=== PATIENT | male | born 1970 | race Caucasian/White ===

== ENCOUNTER 2022-03-10 23:56 | Emergency (ER) | payer OTHER, SELFPAY ==
[2022-03-11 00:05] VITALS: BP 149/84; PULSE 89; RESP 16; TEMP 37; O2SAT 97; BMI 29.8
--- NOTE | 2022-03-11 00:10 | CT_ITS ---
PROCEDURE INFORMATION: Exam: CT Abdomen And Pelvis Without Contrast Exam date and time: 03/11/2022 12:26 AM Age: 51 years old Clinical indication: Abdominal pain; Flank; Left; Additional info: Left flank pain TECHNIQUE: Imaging protocol: Computed tomography of the abdomen and pelvis without contrast. Radiation optimization: All CT scans at this facility use at least one of these dose optimization techniques: automated exposure control; mA and/or kV adjustment per patient size (includes targeted exams where dose is matched to clinical indication); or iterative reconstruction. COMPARISON: No relevant prior studies available. FINDINGS: Liver: Normal. No mass. Gallbladder and bile ducts: Normal. No calcified stones. No ductal dilation. Pancreas: Normal. No ductal dilation. Spleen: Normal. No splenomegaly. Adrenal glands: Normal. No mass. Kidneys and ureters: Moderate left hydronephrosis and ureteral dilatation secondary to a 3 mm stone in the urinary bladder in the region of the left UVJ. Punctate nonobstructing bilateral renal stones. Stomach and bowel: Unremarkable. No obstruction. No mucosal thickening. Appendix: No evidence of appendicitis. Intraperitoneal space: Unremarkable. No free air. No significant fluid collection. Vasculature: Unremarkable. No abdominal aortic aneurysm. Lymph nodes: Unremarkable. No enlarged lymph nodes. Urinary bladder: Unremarkable as visualized. Reproductive: Unremarkable as visualized. Bones/joints: Unremarkable. No acute fracture. Soft tissues: Unremarkable. IMPRESSION: Moderate left hydronephrosis and ureteral dilatation secondary to a 3 mm stone in the urinary bladder in the region of the left UVJ.
[2022-03-11 00:16] LABS: Microscopic, Urine URINE MICROSCOPIC (MICROSCOPIC)
[2022-03-11 00:18] LABS: Appearance,Urine CLOUDY (Clear); Bilirubin,Urine Negative (Negative); Blood, Urine 3+ (Negative); Color,Urine BROWN (Yellow); Glucose,Urine (UA) Negative (Negative); Ketones,Urine Negative (Negative); Leukocyte Esterase,Urine Negative (Negative); Nitrate,Urine Negative (Negative); Protein,Urine 1+ (Negative); Specific Gravity, Urine >= 1.030 (1.005-1.030); Urobilinogen,Urine 0.2 EU/dl (0.2)
[2022-03-11 00:23] LABS: Bacteria,Urine Trace /lpf; RBC,Urine 20-50 #/hpf (0-3); Squamous Epithelial Cell,Urine Occasional #/hpf (0-5); WBC,Urine Occasional #/hpf (0-3)
--- NOTE | 2022-03-11 00:38 | HMH.EDABDPAI ---
Discharge Plan Disposition Patient Disposition: Home, Self-Care Chief Complaint: Abdominal Pain Prescriptions Prescriptions: No Action No Known Home Medications Clinical Impressions Clinical Impression: Renal colic on left side Instructions Patient Instructions: DI for Kidney Stones Discharge ED Provider: Antwan Lazaro Abdominal Pain HPI General Chief Complaint: Abdominal Pain Stated Complaint: Abdominal Pain,bloody urine,HS of kidney stones Time Seen by Provider: 03/11/22 00:38 Mode of Arrival: Ambulatory Source of Information: Patient, Spouse and Medical Record Limitations: No Limitations Description of Symptoms (Recalled from ER Triage Doc. by RN): LEFT FLANK PAIN, SIMILAR TO PREVIOUS KIDNEY STONE. PT REPORTS BLOOD IN URINE. PAIN STARTED 03/10/22 AT 1600 History of Present Illness HPI narrative: lt flank pain with nausea - hx of kidney stone MD complaint: flank pain Onset (ago): hour(s) Quality: sharp Radiation: L flank Related Data Home Medications Medication Instructions Recorded Confirmed No Known Home Medications 03/11/22 03/11/22 Allergies Allergy/AdvReac Type Severity Reaction Status Date / Time No Known Allergies Allergy Verified 03/11/22 00:08 PFSH PFSH Social History Smoking Status: Never smoker alcohol intake: never current occupational status: employed ROS Obtained: Yes All systems reviewed & no additional complaints except as documented Physical Exam General General appearance: alert Head Head exam: normocephalic Eye Eye exam: Present PERRL and EOMI ENT ENT exam: Present mucous membranes moist Neck Neck exam: Present full ROM Respiratory Respiratory exam: Absent respiratory distress Cardiovascular Cardiovascular exam: Present regular rate Abdominal Exam Abdominal exam: Present soft Extremities Exam Extremities exam: Absent tenderness Neurological Exam Neurological exam: Present alert, oriented X3 and CN II-XII intact Skin Skin exam: Present intact Medical Decision Making Medical Records Medical records reviewed: Yes I reviewed the patient's medical records. Yaron Inquiry Pt receiving controlled substance: No Vital Signs: 03/11/22 00:05 03/11/22 01:14 03/11/22 01:32 Temperature 98.6 F Temperature Source Oral Pulse Rate 90 Pulse Rate [Left Radial] 89 Respiratory Rate 16 16 Blood Pressure 115/60 Blood Pressure [Left Arm] 149/84 H Blood Pressure Mean 78 Blood Pressure Mean [Left Arm] 105 Blood Pressure Source [Left Arm] Automatic Cuff 02 Sat by Pulse Oximetry 97 98 Oxygen Delivery Method Room Air Room Air 03/11/22 01:32 Temperature 98.5 F Temperature Source Pulse Rate 78 Pulse Rate [Left Radial] Respiratory Rate 17 Blood Pressure 121/61 Blood Pressure [Left Arm] Blood Pressure Mean Blood Pressure Mean [Left Arm] Blood Pressure Source [Left Arm] 02 Sat by Pulse Oximetry Oxygen Delivery Method Room Air Lab Data Lab results reviewed: Yes I reviewed the patient's lab results. Lab Results 03/11/22 00:00: Urine Color Brown, Urine Appearance Cloudy, Urine pH 6.0, Ur Specific [place] >= 1.030, Urine Protein 1+, Urine Glucose (UA) Negative, Urine Ketones Negative, Urine Blood 3+, Urine Nitrate Negative, Urine Bilirubin Negative, Urine Urobilinogen 0.2, Ur Leukocyte Esterase Negative, Urine RBC 20-50, Urine WBC Occasional, Ur Squamous Epith Cells Occasional, Urine Bacteria Trace 03/11/22 01:13: WBC 17.7 H, RBC 4.66, Hgb 14.5, Hct 44.6, MCV 95.7 H, MCH 31.1, MCHC 32.5, RDW 13.9, Plt Count 300, MPV 8.0, Neut % (Auto) 90.9 H, Lymph % (Auto) 5.5 L, [place] % (Auto) 2.8, Eos % (Auto) 0.6, Baso % (Auto) 0.2, Neut # (Auto) 16.1 H, Lymph # (Auto) 1.0, [place] # (Auto) 0.5, Eos # (Auto) 0.1, Baso # (Auto) 0.0, Total Counted 100, Neutrophils % (Manual) 86 H, Band Neutrophils % 6.0, Lymphocytes % (Manual) 6 L, Monocytes % (Manual) 2, Platelet Estimate Normal, RBC Morphology Normal 03/11/22 01:13: Sodium 140, Po
--- NOTE | 2022-03-11 00:48 | PC.NURSE ---
PT/FAMILY AWARE OF NPO
[2022-03-11 01:14] VITALS: BP 115/60; PULSE 90; RESP 16; O2SAT 98
[2022-03-11 01:20] LABS: Basophils % 0.2 % (0.1-2.0); Eosinophils # 0.1 K/mm3 (0.0-0.4); Eosinophils % 0.6 % (0.1-12.0); Hematocrit 44.6 % (42.0-52.0); Hemoglobin 14.5 g/dL (14.1-18.0); Lymphocytes % 5.5 % (10-50); Mean Corpuscular HGB Conc 32.5 g/dL (31.8-35.4); Mean Corpuscular Hemoglobin 31.1 pg (27.0-31.2); Mean Corpuscular Volume 95.7 fl (80-94); Monocytes # 0.5 K/mm3 (0.1-1.0); Monocytes % 2.8 % (1.7-9.3); Neutrophils # 16.1 K/mm3 (1.8-7.8); Neutrophils % 90.9 % (37.0-80.0); Platelet Count 300 K/mm3 (142-424); Red Blood Count 4.66 M/mm3 (4.60-6.20); Red Cell Distribution Width 13.9 % (11.5-17.5); White Blood Count 17.7 K/mm3 (4.8-10.8)
[2022-03-11 01:28] LABS: MANUAL DIFFERENTIAL MANUAL DIFFERENTIAL (MANUAL DIFF)
[2022-03-11 01:30] VITALS: BP 121/61; PULSE 96; RESP 16; TEMP 36.7; O2SAT 98
[2022-03-11 01:31] LABS: Alanine Aminotransferase 33 U/L (12-78); Albumin Level 4.3 g/dl (3.5-5.0); Albumin/Globulin Ratio 1.4 (1.1-1.8); Alkaline Phosphatase 65 U/L (38-126); Anion Gap 11.9 mEq/L (5-15); Aspartate Amino Transferase 31 U/L (17-59); Bilirubin,Total 0.1 mg/dl (0.2-1.3); Blood Urea Nitrogen 12 mg/dl (9-20); Calcium 9.1 mg/dl (8.4-10.2); Carbon Dioxide 25 mmol/L (22.0-30.0); Chloride 107 mmol/L (98-107); Creatinine Clearance Estimated 121 mL/min (50-200); Estimated Glomerular Filt Rate 78 ml/min (>60); GFR (African American) 95 ML/MIN (>60); Glucose 143 mg/dl (74-100); Lymphocytes % 6 % (10-50); Monocytes % 2 % (2-9); Neutrophils % 86 % (42-76); Platelet Estimate Normal; Potassium 3.9 mmoL/L (3.5-5.1); RBC Morphology Normal; Sodium 140 mmol/L (136-145); Total Cells Counted 100; Total Protein,Serum 7.3 g/dl (6.3-8.2)
[2022-03-11 01:32] VITALS: BP 121/61; PULSE 78; RESP 17; TEMP 36.9; O2SAT 97
[2022-03-11 01:36] LABS: C-Reactive Protein 2.2 mg/L (0-4)
[2022-03-11 01:44] LABS: Erythrocyte Sedimentation Rate 5 mm/hr (0-20)
--- NOTE | 2022-03-11 02:04 | PC.NURSE ---
PT WAITING FOR IVF TO COMPLETE. NO ACUTE DISTRESS NOTED.
== END 2022-03-11 02:37 | disposition home or self-care (01) ==
PROVIDERS: Emergency Provider Emergency Medicine
DX: N23 Unspecified renal colic (principal); R31.9 Hematuria, unspecified; R11.0 Nausea; Z87.442 Personal history of urinary calculi
CPT/HCPCS: 74176; 80053; 81001; 85007; 85025; 85651; 86140; 96361; 96374; 96375; 99285; J2405

== ENCOUNTER 2024-06-07 01:54 | Observation (INO) | payer OTHER, SELFPAY ==
--- NOTE | 2024-06-07 01:58 | HMH.EDGENADL ---
Discharge Plan Disposition Patient Disposition: Admitted Clinical Impressions Clinical Impression: Pulmonary embolism and infarction Discharge ED Provider: Deni Cabrera General Adult HPI General Chief complaint: Abdominal Pain Stated complaint: lower back pain and side pain Time Seen by Provider: 06/07/24 01:58 History of Present Illness HPI narrative: 53-year-old male with history of kidney stones and hypertension presents for flank pain. It was present on the right. Reports a little bit higher than normal for his kidney stones but he had colicky pain and associated nausea at that time. Denies any urinary symptoms. Denies any recent fever or illness. Reports that the pain started all of a sudden. Related Data Home Medications ?Medication ?Instructions ?Recorded ?Confirmed No Known Home Medications 03/11/22 03/11/22 Allergies Allergy/AdvReac Type Severity Reaction Status Date / Time No Known Allergies Allergy Verified 03/11/22 00:08 [facility] Disclaimer: The information contained in this section may have been updated after the patient was seen, as this information can be updated by other users. Social History (Updated 03/11/22 @ 01:45 by Antwan Lazaro MD) Smoking Status: Never smoker alcohol intake: never current occupational status: employed ROS Obtained: Yes All systems reviewed & no additional complaints except as documented Physical Exam General General appearance: alert and in no apparent distress Head Head exam: atraumatic and normocephalic Eye Eye exam: Present normal appearance, PERRL and EOMI ENT ENT exam: Present normal oropharynx and normal external ear exam Neck Neck exam: Present normal inspection and full ROM Chest Chest inspection: Present normal inspection and symmetric chest wall rise; Absent tenderness Respiratory Respiratory exam: Present normal lung sounds bilaterally; Absent respiratory distress Cardiovascular Cardiovascular exam: Present regular rate and normal rhythm Abdominal Exam Abdominal exam: Present soft and tenderness (Right CVA); Absent distention or guarding Extremities Exam Extremities exam: Present normal inspection; Absent edema or joint swelling Back Exam Back exam: Present normal inspection; Absent tenderness Neurological Exam Neurological exam: Present alert and oriented X3; Absent motor sensory deficit Psychiatric Psychiatric exam: Present normal affect and normal mood Skin Skin exam: Present warm, dry and normal color Lymphatic Lymphatic Findings: no adenopathy Medical Decision Making Medical Records Medical records reviewed: Yes I reviewed the patient's medical records. Screening: Per USPSTF and CDC recommendations, given the prevalence of disease in our region, it is our hospital?s policy to screen for HIV and viral Hepatitis for all patients aged 18 and over and those with ongoing risk factors. Yaron Inquiry Pt receiving controlled substance: No Yaron was queried for this patient: No Vital Signs: 06/07/24 02:03 06/07/24 05:58 Temperature 97.4 F L 98.4 F Temperature Source Temporal Artery Scan Oral Pulse Rate 79 Pulse Rate [Right] 94 H Respiratory Rate 20 16 Blood Pressure 133/81 Blood Pressure [Right Arm] 144/89 H Blood Pressure Mean [Right Arm] 107 02 Sat by Pulse Oximetry 99 Oxygen Delivery Method Room Air Room Air Lab Data Lab results reviewed: Yes I reviewed the patient's lab results. Lab Results 06/07/24 03:30: WBC 15.7 H, RBC 4.84, Hgb 14.9, Hct 44.9, MCV 92.7, MCH 30.7, MCHC 33.1, RDW 13.6, Plt Count 305, MPV 7.8, Neut % (Auto) 77.6, Lymph % (Auto) 15.1, [place] % (Auto) 5.8, Eos % (Auto) 1.0, Baso % (Auto) 0.5, Neut # (Auto) 12.2 H, Lymph # (Auto) 2.4, [place] # (Auto) 0.9, Eos # (Auto) 0.2, Baso # (Auto) 0.1, Total Counted 100, Neutrophils % (Manual) 71, Lymphocytes % (Manual) 20, Atypical Lymphs % 2.0, Monocytes % (Manual) 5, Eosinophils % (Manual) 2, Platelet Estimate Normal, RBC Morphology Normal, Sodium 142, Potassium 4.1, Chloride 104, Carbon Dioxide 28, Anion Gap 14.1, BUN 18, Creatinine 1.10, Estimated Creat Clear 110, Estimated GFR 69, Est GFR ( Amer) 84, Glucose 108 H, Calcium 9.3, Total Bilirubin 0.7, AST 43, ALT 46, Alkaline Phosphatase 93, Troponin I < 0.01, Total Protein 7.8, Albumin 4.4, Globulin 3.4 H, Albumin/Globulin Ratio 1.3, Lipase 309 H, Urine Color Yellow, Urine Appearance Clear, Urine pH 5.5, Ur Specific [place] >= 1.030, Urine Protein Negative, Urine Glucose (UA) Negative, Urine Ketones Negative, Urine Blood Negative, Urine Nitrate Negative, Urine Bilirubin Negative, Urine Urobilinogen 0.2, Ur Leukocyte Esterase Negative, Urine RBC Occasional, Urine WBC Occasional, Ur Squamous Epith Cells None, Urine Bacteria Trace, Hyaline Casts 3-5 06/07/24 03:30 06/07/24 03:30 Orders (Tests/Meds): ED MEDICATIONS Generic Name Dose Route Start Last Admin Trade Name Freq PRN Reason Stop Dose Admin Enoxaparin Sodium 100 mg 06/07/24 04:45 06/07/24 04:45 Enoxaparin 100mg/Ml Syringe 1 mg/kg (100 mg) 07/07/24 04:44 100 mg SUBCUT Administration Q12H NED Sodium Chloride 10 ml 06/07/24 04:16 06/07/24 04:17 Sodium Chloride 0.9% 10ml Syr (Rad Only) IV 07/07/24 04:15 10 ml NEEDED PRN Administration Maintain IV Site Discontinued Medications Generic Name Dose Route Start Last Admin Trade Name Freq PRN Reason Stop Dose Admin Iopamidol 70 ml 06/07/24 04:16 06/07/24 04:17 Iopamidol-370 (76%);100ml Bottle IV 06/07/24 04:17 70 ml ONCE ONE Administration Sodium Chloride 50 ml 06/07/24 04:16 06/07/24 04:17 0.9 % Sodium Chloride 50 Ml Vial IV 06/07/24 04:17 50 ml ONCE ONE Administration ORDERS Category Date Time Status CT abdomen pelvis w con Stat Cat Scan 06/07/24 03:[address] abdomen pelvis wo con Stat Cat Scan 06/07/24 02:[address] angio chest PE protocol Stat Cat Scan 06/07/24 03:41 Completed CBC w/Auto Diff [Complete Blood Count Auto Diff] Stat Lab 06/07/24 03:30 Completed CMP [Comprehensive Metabolic Panel] Stat Lab 06/07/24 03:30 Completed Lipase Stat Lab 06/07/24 03:30 Completed Troponin I Q3H Lab 06/07/24 07:45 Ordered Troponin I Q3H Lab 06/07/24 10:45 Ordered Troponin I Stat Lab 06/07/24 03:30 Completed UA [Urinalysis and Microscopic] Stat Lab 06/07/24 03:30 Completed EKG Request [ECG Request] Stat Y 06/07/24 04:36 Ordered ECG Data Tracing #1: I reviewed this ECG and interpreted as documented below: Sinus rhythm, rate of 81, no concerning ST-T or T wave changes, no evidence of arrhythmia. ECG initial impression date: 06/07/24 ECG initial impression time: 04:44 HEART Score History (anamnesis): Slightly suspicious ECG: Normal Age: 45-65 years Risk factors: 1-2 risk factors Troponin: </= normal limit HEART Score: 2 Medical Decision Narrative: 53-year-old male with history of kidney stones and hypertension presents with acute onset right CVA pain. He reports it feels a little higher than normal for his kidney stones. Denies any urinary symptoms.. History was obtained via interactive discussion with patient, family. On arrival, patient is [afebrile, hemodynamically stable, satting appropriately, alert, oriented x4, GCS 15], moving all extremities spontaneously. Full physical exam performed and significant for right CVA tenderness. Differential includes but is not limited to kidney stone, pyelonephritis, PE, intra-abdominal pathology. Given history of stones and symptoms consistent with obstructing stone, we initially began evaluation with urinalysis and Noncon CT abdomen pelvis. These returned normal however. Given this, we broadened our evaluation and obtained basic labs, CT PE, CT abdomen pelvis with contrast. Laboratory workup independently interpreted by me and significant for leukocytosis with white count of 15.7, no significant electrolyte derangement, negative distal troponin, urinalysis without evidence of infection. Imaging independently interpreted by me and significant for large segmental PE with involvement of the right upper right lower and right middle lobe. There are smaller subsegmental PEs on the left side. There is suggestion of heart strain as well. There are some groundglass opacities in the right lower lobe which may be developing infarct. See radiology read for full review of final results. EKG independently interpreted by me and significant for normal sinus rhythm. Given patient history, exam and workup, patient's presentation most likely represents acute provoked PE. Patient was initiated on 1 mg/kg Lovenox. On further discussion, patient reports that he recently drove from [place] for approximately 10 hours, this is likely the provoking factor. Patient has negative troponin, normal EKG, normal vital signs and is feeling well. However, given the size of the PE and the suggestion of heart strain on the CT scan I think he would be best served by obtaining formal echocardiogram and being evaluated by cardiology. Interactive discussion was had with the hospitalist on-call for admission. Procedures Risk/Benefits of Procedure(s) Were Explained: Yes Critical Care Critical Care Time Critical Care Time: Yes Attestation: On 06/07/24, the high probability of a clinically significant, sudden or life threatening deterioration of the following system(s) cardiac, respiratory required my full and direct attention, intervention and personal management. The time I documented below is in addition to time spent performing reported procedures but includes the following listed in this critical care notation. Total Time Total Critical Care Time: 45
[2024-06-07 02:03] VITALS: BP 144/89; PULSE 94; RESP 20; TEMP 36.3; O2SAT 99; BMI 30.5
--- NOTE | 2024-06-07 02:51 | CT_ITS ---
PROCEDURE INFORMATION: Exam: CT Abdomen And Pelvis Without Contrast Exam date and time: 06/07/2024 2:55 AM Age: 53 years old Clinical indication: Abdominal pain; Flank; Right; Additional info: Right flank pain, HX stones TECHNIQUE: Imaging protocol: Computed tomography of the abdomen and pelvis without contrast. Radiation optimization: All CT scans at this facility use at least one of these dose optimization techniques: automated exposure control; mA and/or kV adjustment per patient size (includes targeted exams where dose is matched to clinical indication); or iterative reconstruction. COMPARISON: CT ABDOMEN PELVIS WO CON 03/11/2022 12:26 AM FINDINGS: Lungs: Patchy airspace opacity within the right lower lobe.. Pleural spaces: No pleural effusion. Heart: Visualized heart is unremarkable. No pericardial effusion. Liver: The liver has normal size and contour. Gallbladder and biliary ducts: The gallbladder is unremarkable. No biliary ductal dilatation. Pancreas: The pancreas is unremarkable. Spleen: The spleen is unremarkable. Adrenal glands: The adrenal glands are normal. Kidneys and ureters: The kidneys have non-contrast appearance without hydronephrosis. Multiple nonobstructing renal stones bilaterally, largest measuring 4 mm. The ureters have normal course and caliber without stone. Stomach and bowel: The small and large bowel have normal course and caliber. No evidence of bowel obstruction. No pericolonic inflammatory stranding. Appendix: No evidence of appendicitis. Intraperitoneal space: No significant peritoneal free fluid. No free peritoneal air. Vasculature: No abdominal aortic aneurysm. Lymph nodes: No suspicious adenopathy by size criteria. Urinary bladder: The bladder is normal without focal wall thickening. Reproductive: The prostate is mildly enlarged with calcifications. Bones/joints: Multilevel degenerative type changes of the spine. No acute osseous abnormality. Soft tissues: Unremarkable. IMPRESSION: 1. No obstructive uropathy. 2. Bilateral nonobstructing renal stones. 3. Patchy airspace opacity within the right lung base favored represent atelectasis with infection not excluded. 4. Other findings as above.
--- NOTE | 2024-06-07 03:41 | CT_ITS ---
PROCEDURE INFORMATION: Exam: CTA Chest With Contrast Exam date and time: 06/07/2024 4:04 AM Age: 53 years old Clinical indication: Other: Right pleuritic thoracic/flank pain TECHNIQUE: Imaging protocol: Computed tomographic angiography of the chest with contrast. Exam focused on the arteries. 3D rendering (Not supervised by radiologist): MIP and/or 3D reconstructed images were created by the technologist. Radiation optimization: All CT scans at this facility use at least one of these dose optimization techniques: automated exposure control; mA and/or kV adjustment per patient size (includes targeted exams where dose is matched to clinical indication); or iterative reconstruction. Contrast material: ISOUVE 370; Contrast volume: 70 ml; Contrast route: INTRAVENOUS (IV); COMPARISON: CT ANGIO CHEST PE PROTOCOL 06/07/2024 4:04 AM FINDINGS: Pulmonary arteries: Multiple pulmonary artery embolisms within segmental and subsegmental branches of the right middle, right lower and the left lower lobes. Aorta: No aortic aneurysm. No aortic dissection. Thyroid: The thyroid gland is normal. Lungs: Ground-glass opacity within the right lower lobe. Pleural spaces: No pneumothorax. No pleural effusion. Heart: No cardiomegaly. No pericardial effusion. There is flattening of the intraventricular septum. Heart RV/LV ratio: RV LV ratio is 1.20 Lymph nodes: No suspicious adenopathy by size criteria. Bones/joints: Multilevel degenerative type changes of the spine. No acute osseous abnormality. Soft tissues: Unremarkable. IMPRESSION: 1. Pulmonary artery embolisms within segmental and subsegmental branches of the right middle, right lower, and left lower lobes with associated evidence suggestive of right heart strain. Recommend correlation with history/physical exam. 2. Ground-glass opacity within the right lower lobe may represent developing infarct, diagnostic considerations include atelectasis. 3. Other findings as above.
--- NOTE | 2024-06-07 03:41 | CT_ITS ---
PROCEDURE INFORMATION: Exam: CT Abdomen And Pelvis With Contrast Exam date and time: 06/07/2024 4:04 AM Age: 53 years old Clinical indication: Abdominal pain; Flank; Right; Additional info: Right flank pain TECHNIQUE: Imaging protocol: Computed tomography of the abdomen and pelvis with contrast. 3D rendering (Not supervised by radiologist): MIP and/or 3D reconstructed images were created by the technologist. Radiation optimization: All CT scans at this facility use at least one of these dose optimization techniques: automated exposure control; mA and/or kV adjustment per patient size (includes targeted exams where dose is matched to clinical indication); or iterative reconstruction. Contrast material: ISOVUE; Contrast volume: 70 ml; Contrast route: IV; COMPARISON: CT ABDOMEN PELVIS WO CON 06/07/2024 2:55 AM FINDINGS: Lungs: Right lower lobe airspace opacity. Lower lobe airspace opacity Diaphragm: See same day CT chest for supradiaphragmatic findings. Liver: The liver has normal size and contour. Gallbladder and biliary ducts: The gallbladder is unremarkable. No biliary ductal dilatation. Pancreas: The pancreas is unremarkable. Spleen: Heterogeneous appearance of the spleen. No splenomegaly. Adrenal glands: The adrenal glands are normal. Kidneys and ureters: The kidneys enhance symmetrically without hydronephrosis. Multiple nonobstructing renal stones bilaterally, largest measuring 4 mm. Simple appearing renal cysts bilaterally. Stomach and bowel: The stomach is normal. The small and large bowel have normal course and caliber. No evidence of bowel obstruction. No pericolonic inflammatory stranding. Appendix: No evidence of appendicitis. Intraperitoneal space: No free air. No significant fluid collection. Vasculature: There is a pulmonary embolism within the segmental branches of the right and left lower lobes. Mild narrowing of the SMA. Lymph nodes: No enlarged lymph nodes. Urinary bladder: The bladder is normal without focal wall thickening. Reproductive: The prostate is enlarged with calcifications. Bones/joints: Multilevel degenerative type changes of the spine. No acute osseous abnormality. Soft tissues: Unremarkable. IMPRESSION: 1. Pulmonary artery embolisms within the right and left lower lobes. See same day CTA chest for further detail. 2. No obstructive uropathy. 3. Bilateral nonobstructing renal stones. 4. Other findings as above. COMMENTS: Consistent with the [employer]'s Incidental Findings Committee white paper (J Am Tyler Radiol 2018): Any incidental renal lesion less than 1 cm or classified as too small to characterize, or any incidental cystic renal lesion characterized as simple-appearing, is likely benign. No follow-up imaging is recommended for these lesions per consensus recommendations based on imaging criteria.
[2024-06-07 03:50] LABS: Appearance,Urine CLEAR (Clear); Bilirubin,Urine Negative (Negative); Blood, Urine Negative (Negative); Color,Urine YELLOW (Yellow); Glucose,Urine (UA) Negative (Negative); Ketones,Urine Negative (Negative); Leukocyte Esterase,Urine Negative (Negative); Microscopic, Urine URINE MICROSCOPIC (MICROSCOPIC); Nitrate,Urine Negative (Negative); PH,Urine 5.5 (5.0-8.5); Protein,Urine Negative (Negative); Specific Gravity, Urine >= 1.030 (1.005-1.030); Urobilinogen,Urine 0.2 EU/dl (0.2)
[2024-06-07 03:53] LABS: Basophils # 0.1 K/mm3 (0-0.2); Basophils % 0.5 % (0.1-2.0); Eosinophils # 0.2 K/mm3 (0.0-0.4); Hematocrit 44.9 % (42.0-52.0); Hemoglobin 14.9 g/dL (14.1-18.0); Lymphocytes # 2.4 K/mm3 (0.7-4.5); Lymphocytes % 15.1 % (10-50); Mean Corpuscular HGB Conc 33.1 g/dL (31.8-35.4); Mean Corpuscular Hemoglobin 30.7 pg (27.0-31.2); Mean Corpuscular Volume 92.7 fl (80-94); Mean Platelet Volume 7.8 fl (7.4-10.4); Monocytes # 0.9 K/mm3 (0.1-1.0); Monocytes % 5.8 % (1.7-9.3); Neutrophils # 12.2 K/mm3 (1.8-7.8); Neutrophils % 77.6 % (37.0-80.0); Platelet Count 305 K/mm3 (142-424); Red Blood Count 4.84 M/mm3 (4.60-6.20); Red Cell Distribution Width 13.6 % (11.5-17.5); White Blood Count 15.7 K/mm3 (4.8-10.8)
[2024-06-07 03:56] LABS: MANUAL DIFFERENTIAL MANUAL DIFFERENTIAL (MANUAL DIFF)
[2024-06-07 03:57] LABS: Bacteria,Urine Trace /lpf; RBC,Urine Occasional #/hpf (0-3); WBC,Urine Occasional #/hpf (0-3)
[2024-06-07 03:58] LABS: Lipase 309 U/L (23-300)
[2024-06-07 03:59] LABS: Alanine Aminotransferase 46 U/L (12-78); Albumin Level 4.4 g/dl (3.5-5.0); Albumin/Globulin Ratio 1.3 (1.1-1.8); Alkaline Phosphatase 93 U/L (38-126); Anion Gap 14.1 mEq/L (5-15); Aspartate Amino Transferase 43 U/L (17-59); Bilirubin,Total 0.7 mg/dl (0.2-1.3); Blood Urea Nitrogen 18 mg/dl (9-20); Calcium 9.3 mg/dl (8.4-10.2); Carbon Dioxide 28 mmol/L (22.0-30.0); Chloride 104 mmol/L (98-107); Creatinine Clearance Estimated 110 mL/min (50-200); Estimated Glomerular Filt Rate 69 ml/min (>60); GFR (African American) 84 ML/MIN (>60); Globulin 3.4 g/dL (1.3-3.2); Glucose 108 mg/dl (74-100); Potassium 4.1 mmoL/L (3.5-5.1); Sodium 142 mmol/L (136-145); Total Protein,Serum 7.8 g/dl (6.3-8.2)
[2024-06-07 04:14] LABS: Eosinophils % 2 % (0-3); Lymphocytes % 20 % (10-50); Monocytes % 5 % (2-9); Neutrophils % 71 % (42-76); Platelet Estimate Normal; RBC Morphology Normal; Total Cells Counted 100
[2024-06-07] MEDS: IOPAMIDOL-370 (76%);100ML BOTTLE 70 ML IV (04:17)
[2024-06-07] MEDS: SODIUM CHLORIDE 0.9% 10ML SYR (RAD ONLY) 10 ML IV (04:17)
[2024-06-07] MEDS: 0.9 % SODIUM CHLORIDE 50 ML VIAL IV (04:17)
--- NOTE | 2024-06-07 04:44 | ECG_ITS ---
APPROVED REPORT Exam: Resting ECG HR:81 bpm ECG Measurements Heart Rate 81 AXES PA 152 P 62 QRSd 97 QRS 63 QT 369 T 18 QTc 406 Conclusion SINUS RHYTHM NORMAL ECG INTERPRETATION BASED ON A DEFAULT AGE OF 40 YEARS UNCONFIRMED REPORT Electronically signed by : PRAMOD SHABAZZ, 06/10/2024 06:27:34
[2024-06-07] MEDS: ENOXAPARIN 100MG/ML SYRINGE 100 MG SUBCUT (04:45)
--- NOTE | 2024-06-07 04:48 | PC.NURSE ---
EKG 12-lead taken at this time.
[2024-06-07 04:53] LABS: Troponin I < 0.01 ng/ml (0.00-0.034)
[2024-06-07 05:58] VITALS: BP 133/81; PULSE 79; RESP 16; TEMP 36.9; O2SAT 95
--- NOTE | 2024-06-07 06:08 | P.HP_ITS ---
History of Present Illness *Admission Date: 06/07/24 *Reason for visit:: Right chest pain *History of present illness: Cm Ramos is a 53-year-old male past medical history significant for HCM? who presents emergency room tonight with complaints of right sided thoracic pain . Mr. Ramos just drove 10 hours from [place]. Reports he had sharp pain that started on his right side, posterior ribs radiating around to the anterior chest. Pain is worse with inspiration. Reports a very mild shortness of breath. Mr. Ramos denies any blood clotting disorders in the past, no family history of clotting disorders. He has never had a pulmonary embolus before. Does not take blood thinners. Only takes a beta-mee daily for reported HCM. Reports that he last had a stress test and an echo done approximately 2 months ago. No abnormalities noted on the stress test. Patient is active, does go to the gym regularly. Does report some left-sided calf pain, reports he thinks it is just a muscle cramp. Denies any swelling in his lower extremities, no erythema noted. Denies tobacco use, alcohol use, illicit drug use. Lab work in the ER showed an elevated white count of 15,000, lipase slightly elevated at 309. UA was negative. CTA of the chest showed multiple pulmonary embolisms within the segmental and subsegmental branches of the right middle, right lower, and left lower lobes, does appear to be some right heart strain noted on the scan. Groundglass opacity in the right lower lobe developing infarct versus atelectasis. Patient was given a 1 mg/kg dose of Lovenox. He will be admitted to the hospitalist service for pulmonary embolus. [facility] Disclaimer: The information contained in this section may have been updated after the patient was seen, as this information can be updated by other users. Medical History HOCM (hypertrophic obstructive cardiomyopathy) Surgical History History of lithotripsy Social History Smoking Status: Never smoker alcohol intake: never current occupational status: employed Review of Systems Review of Systems Review of systems:: pertinent systems reviewed and negative unless documented below *Cardiovascular Cardiovascular: Reports dyspnea *Respiratory Respiratory: Reports dyspnea and Reports pain with cough Comments: Right sided chest pain Meds Home Medications and Allergies Home Medications ?Medication ?Instructions ?Recorded ?Confirmed ?Type apixaban 5 mg (74 tabs) tablets in 5 mg PO BID #74 tabs 06/07/24 Rx a dose pack (Eliquis DVT-PE Treat 30D Start) hydrocodone 5 mg-acetaminophen 325 1 tab PO Q8H PRN pain #9 tabs 06/07/24 Rx mg tablet metoprolol succinate 25 mg 25 mg PO DAILY 06/07/24 06/07/24 History tablet,extended release 24 hr New Prescriptions to Start Prescriptions: apixaban [Eliquis DVT-PE Treat 30D Start] Jasvir Schaefer hydrocodone-acetaminophen Jasvir Schaefer Allergies Allergy/AdvReac Type Severity Reaction Status Date / Time No Known Allergies Allergy Verified 03/11/22 00:08 Exam Data for Last 24 hours Vital signs and Labs for Last 24 Hours: Temp Pulse Resp BP Pulse Ox O2 Del Method 98.4 F 79 16 133/81 99 Room Air 06/07/24 05:58 06/07/24 05:58 06/07/24 05:58 06/07/24 05:58 06/07/24 02:03 06/07/24 05:58 Laboratory Results - last 24 hr 06/07/24 03:30: WBC 15.7 H, RBC 4.84, Hgb 14.9, Hct 44.9, MCV 92.7, MCH 30.7, MCHC 33.1, RDW 13.6, Plt Count 305, MPV 7.8, Neut % (Auto) 77.6, Lymph % (Auto) 15.1, Story % (Auto) 5.8, Eos % (Auto) 1.0, Baso % (Auto) 0.5, Neut # (Auto) 12.2 H, Lymph # (Auto) 2.4, Story # (Auto) 0.9, Eos # (Auto) 0.2, Baso # (Auto) 0.1, Total Counted 100, Neutrophils % (Manual) 71, Lymphocytes % (Manual) 20, Atypical Lymphs % 2.0, Monocytes % (Manual) 5, Eosinophils % (Manual) 2, Platelet Estimate Normal, RBC Morphology Normal, Sodium 142, Potassium 4.1, Chloride 104, Carbon Dioxide 28, Anion Gap 14.1, BUN 18, Creatinine 1.10, Estimated Creat Clear 110, Estimated GFR 69, Est GFR ( Amer) 84, Glucose 108 H, Calcium 9.3, Total Bilirubin 0.7, AST 43, ALT 46, Alkaline Phosphatase 93, Troponin I < 0.01, Total Protein 7.8, Albumin 4.4, Globulin 3.4 H, Albumin/Globulin Ratio 1.3, Lipase 309 H, Urine Color Yellow, Urine Appearance Clear, Urine pH 5.5, Ur Specific [place] >= 1.030, Urine Protein Negative, Urine Glucose (UA) Negative, Urine Ketones Negative, Urine Blood Negative, Urine Nitrate Negative, Urine Bilirubin Negative, Urine Urobilinogen 0.2, Ur Leukocyte Esterase Negative, Urine RBC Occasional, Urine WBC Occasional, Ur Squamous Epith Cells None, Urine Bacteria Trace, Hyaline Casts 3-5 I & O for Last 24 hours: Intake & Output 06/04/24 06/05/24 06/06/24 06/07/24 23:59 23:59 23:59 23:59 Weight 102.058 kg Constitutional Constitutional: no acute distress *Routine HEENT Exam Head: Present normocephalic Eye: Present EOMI and PERRL ENT: Present mucous membranes moist *Routine Neck Exam Neck: Present supple; Absent lymphadenopathy *Routine Respiratory Exam Respiratory: Present CTA bilaterally *Routine Cardiovascular Exam Cardiovascular: Present RRR *Routine Abdominal Exam Abdominal: Present soft and normoactive bowel sounds; Absent tenderness *Routine Rectal Exam Rectal:: deferred *Routine Genitalia Exam Genitalia:: deferred *Routine Extremities Exam Extremities: Absent cyanosis, clubbing or edema *Routine Skin Exam Skin: Present warm; Absent rash *Routine Neurological Exam Neurological: Present alert and oriented X3 Assessment and Plan *Assessment and plan (1) Pulmonary embolism and infarction: Status: Acute Category: Medical Code(s): I26.99 - Other pulmonary embolism without acute cor pulmonale (2) HTN (hypertension): Status: Acute Category: Medical Code(s): I10 - Essential (primary) hypertension Plan Assessment: This is a 53-year-old male being admitted for multiple pulmonary emboli with evidence of right heart strain on CTA. On my exam, patient is lying in bed in no acute distress. No complaints at this time. Case discussed with ER physician, request admission for further management including echo and cardiology eval. Medicine agreed to admit. Plan: Admit to observation-MedSurg Pulmonary emboli Evidence of right heart strain on CTA -Likely due to recent lengthy car ride, greater than 10 hours from [place] yesterday -Telemetry -Echo -Consult cardiology -Serial troponins -Pain management as needed -Patient was given a loading dose of 1 mg/kg Lovenox, will switch him over to a DOAC -Doppler studies of his bilateral lower extremities HTN -Continue beta-mee DVT prophylaxis: Lovenox CODE STATUS: Full code Surrogate decision maker: Yany Roy co [id number] Skin: Low risk Estimated length of stay: Less than 2 midnights Rounded on patient after nurse practitioner. Personally examined and interviewed patient. Agree with exam findings and care plan as documented.
--- NOTE | 2024-06-07 06:11 | CA_ITS ---
APPROVED REPORT EXAM: Comprehensive 2D, Doppler, and color-flow Echocardiogram Adobe Block Maker: Helena Euceda RT(R) Ht: 6 ft 0 in Wt: 225lbs BSA: 2.24 BP: 133/81 mmHg Indications: bilateral PE's, HTN, patient states he possibly had HOCM on echo done 3-4 months ago in [place], hx kidney stones Echo Enhancing Agent Indication: Rule out Shunt Agent(s) / Amount(s) Used: Agitated Saline 20 cc 2D Dimensions Left Atrium 4.00 cm M: 3.0 - 4.0 LVEF (Perdomo's) 50.10 % M: 52 - 72 LVOT 1.96 cm (M/F) 1.5-2.5 LV Volume 108.10 mL M: 62 - 150 LV Volume Index 48.3 mL/m2 M: 34 - 74 LA Volume 45.40 mL LA Volume Index 20.27 mL/m2 (M/F) 16-34 EF AP4 48.60 % EF AP2 49.4 % EF BP 50.1 % GL Strain -18.5 % M-Mode Dimensions RVDd 2.61 cm (0.9-2.6) LVDd 4.70 cm (3.5-5.7) Ao Diam 2.99 cm (2.0-3.7) LVDs 3.13 cm (3.5-5.7) IVSd 0.68 cm (0.6-1.1) PWd 0.68 cm (0.6-1.1) EF (Teich) 62.10% FS 33.40% EDV (Teich) 102.40 mL ESV (Teich) 38.80 mL LV Diastology E Decel Time 172 (160-240 msec) E/A Ratio 1.1 MED E' 6.5 (>= 7 cm/sec) E'/MED E' Ratio 12.68 (<= 14) LAT E' 10.4 (>= 10 cm/sec) E/LAT E' Ratio 7.92 (<= 14) Aortic Valve LVOT Max 133.0 (70-110 cm/s) YUE Index 1.30 cm2/m2 LVOT VTI 24.23 cm AoV Peak Ronni. 147.0 (50-130 cm/s) AO Mean GR. 4.20 (<5 mmHg) AO VTI 25.1 (18-25 cm) YUE (VTI) 2.91 (2.5-4.5 cm2) Mitral Valve MV E Max Ronni. 82.0 (40-130 cm/s) MV A Velocity 74.0 (40-130 cm/s) E/A Ratio 1.12 MV Decel. Time 172 (160-240 ms) Tricuspid Valve TR P. Velocity 258.00 cm/s RAP Estimate 10.00 mmHg RVSP 36.70 mmHg Left Ventricle The left ventricle is normal size. The left ventricular systolic function is normal. The left ventricular ejection fraction is within the normal range. Proximal septal thickening is noted. Mild increase in the LV apical region (foreshortening vs. increased wall thickness). There is normal LV segmental wall motion. The left ventricular diastolic function is normal. LVEF is 60%. Right Ventricle The right ventricle is mildly dilated. The right ventricular systolic function is normal. Atria The left atrium is mildly dilated. The right atrium is mildly dilated. There is no Doppler evidence of interatrial shunt. Aortic Valve Aortic valve is mildly thickened. There is no aortic valvular stenosis. Trace aortic regurgitation. Mitral Valve The mitral valve is normal in structure. No evidence of mitral valve stenosis. Trace mitral regurgitation. Tricuspid Valve The tricuspid valve leaflets are thin and pliable. Trace tricuspid regurgitation. There is insufficient TR jet to estimate RVSP. Pulmonic Valve The pulmonary valve is normal in structure. Trace pulmonic regurgitation. Great Vessels The aortic root is normal in size. The ascending aorta is not well-visualized. IVC is normal in size and collapses >50% with inspiration. Pericardium There is no pericardial effusion. Other Information Study Quality: Fair Conclusion Normal biventricular systolic function. No evidence of JAYANT or LVOT obstruction at rest. Mild increase in the LV apical region (foreshortening vs. increased wall thickness). Mild RV dilation. Mild biatrial dilation. No significant valvular stenosis or regurgitation. In the setting of suggested recent diagnosis of possible HCM and presence of mild increase of apical LV wall thickness, further evaluation for apical HCM is suggested with outpatient cardiac MRI (HCM protocol) to conclusively rule out HCM diagnosed. Electronically signed by : Mag Gabriel MD 06/07/2024 11:28:56
--- NOTE | 2024-06-07 06:11 | CA_ITS ---
FINAL REPORT CLINICAL HISTORY: PE'S,LEFT LEG PAIN COMPARISON: None FINDINGS: DUPLEX VENOUS SONOGRAPHY OF THE BILATERAL LOWER EXTREMITIES Multiple transverse and longitudinal scans were performed of the femoropopliteal deep venous systems, with augmentation and compression maneuvers. Normal phasic flow was noted in the right lower extremity visualized deep venous system. No intraluminal increased echogenicity is noted to suggest thrombus. There is normal compression and augmentation of the venous structures. No abnormal venous collaterals are seen. Echogenic material is seen in the left popliteal vein and peroneal vein consistent with thrombus. IMPRESSION: No evidence of DVT right lower extremity. DVT left popliteal and upper calf veins. Reviewed, Interpreted and Dictated by Kimber Jacinto MD Transcribed by Machelle Zepeda Authenticated and [facility]
--- NOTE | 2024-06-07 06:13 | PC.NURSE ---
pt arrived to floor via wheelchair @06:08
[2024-06-07 06:20] VITALS: PULSE 83
--- NOTE | 2024-06-07 07:28 | HMH.PHAINT1 ---
Pharmacy Intervention Comments: home medications verified via outpatient pharmacy and patient interview
[2024-06-07 08:00] VITALS: BP 136/73; PULSE 100; PULSE 94; RESP 19; TEMP 36.6; O2SAT 95
[2024-06-07 08:49] LABS: Troponin I < 0.01 ng/ml (0.00-0.034)
--- NOTE | 2024-06-07 11:31 | EXP.CARD.CON ---
History of Present Illness History of Present Illness Consult date: 06/07/24 Requesting physician: Jasvir Schaefer Chief complaint: SOA, PE History of present illness: 53-year-old white male with hx of mild HCM and Htn presented to the emergency room with complaints of shortness of breath and weakness worse with exertion better with rest associated with left calf pain. Patient was found to have multiple PEs noted on CT with mild right heart strain. 2D echo is pending. Venous duplex indicates negative for DVT on the right but positive for DVT left popliteal and upper calf veins. O2 sat 95% on room air, heart rate 94. Patient denies any recent injury, prolonged illness, family history of VTE. 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 Patient states last week he had sharp pain in his left calf which he thought he hurt at the gym. Symptoms progressed until yesterday when he developed the shortness of breath and weakness after driving here from [place]. Patient was admitted overnight and placed on Lovenox. This morning he reports some mild right pleuritic chest discomfort worse with deep breathing and left calf pain on palpation. [facility] Disclaimer: The information contained in this section may have been updated after the patient was seen, as this information can be updated by other users. Medical History HOCM (hypertrophic obstructive cardiomyopathy) Surgical History History of lithotripsy Social History Smoking Status: Never smoker alcohol intake: never current occupational status: employed Travel in the last 8 weeks: Inside the [facility] Review of Systems Constitutional Constitutional: Denies fatigue and Denies weakness Eyes Eyes: Denies loss of vision ENT Ears, Nose, Mouth, and Throat: Denies hearing loss and Denies vertigo *Cardiovascular Cardiovascular: Reports chest pain, Reports dyspnea and Denies syncope *Respiratory Respiratory: Denies cough and Reports dyspnea *Gastrointestinal Gastrointestinal: Denies change in stool character, Denies nausea and Denies vomiting *Genitourinary Genitourinary: Denies difficulty urinating *Musculoskeletal Musculoskeletal: Denies muscle weakness Comments: Left calf pain on palpation and ambulation Integumentary/Breasts Skin/Breast: Denies changing lesions *Neurologic Neurologic: Denies loss of vision, Denies syncope, Denies vertigo and Denies weakness Endocrine Endocrine: Denies fatigue Exam Data for Last 24 hours Vital signs and Labs for Last 24 Hours: Temp Pulse Resp BP Pulse Ox O2 Del Method 97.8 F 94 H 19 136/73 95 Room Air 06/07/24 08:00 06/07/24 08:00 06/07/24 08:00 06/07/24 08:00 06/07/24 08:00 06/07/24 11:00 Laboratory Results - last 24 hr 06/07/24 03:30: WBC 15.7 H, RBC 4.84, Hgb 14.9, Hct 44.9, MCV 92.7, MCH 30.7, MCHC 33.1, RDW 13.6, Plt Count 305, MPV 7.8, Neut % (Auto) 77.6, Lymph % (Auto) 15.1, [place] % (Auto) 5.8, Eos % (Auto) 1.0, Baso % (Auto) 0.5, Neut # (Auto) 12.2 H, Lymph # (Auto) 2.4, [place] # (Auto) 0.9, Eos # (Auto) 0.2, Baso # (Auto) 0.1, Total Counted 100, Neutrophils % (Manual) 71, Lymphocytes % (Manual) 20, Atypical Lymphs % 2.0, Monocytes % (Manual) 5, Eosinophils % (Manual) 2, Platelet Estimate Normal, RBC Morphology Normal, Sodium 142, Potassium 4.1, Chloride 104, Carbon Dioxide 28, Anion Gap 14.1, BUN 18, Creatinine 1.10, Estimated Creat Clear 110, Estimated GFR 69, Est GFR ( Amer) 84, Glucose 108 H, Calcium 9.3, Total Bilirubin 0.7, AST 43, ALT 46, Alkaline Phosphatase 93, Troponin I < 0.01, Total Protein 7.8, Albumin 4.4, Globulin 3.4 H, Albumin/Globulin Ratio 1.3, Lipase 309 H, Urine Color Yellow, Urine Appearance Clear, Urine pH 5.5, Ur Specific [place] >= 1.030, Urine Protein Negative, Urine Glucose (UA) Negative, Urine Ketones Negative, Urine Blood Negative, Urine Nitrate Negative, Urine Bilirubin Negative, Urine Urobilinogen 0.2, Ur Leukocyte Esterase Negative, Urine RBC Occasional, Urine WBC Occasional, Ur Squamous Epith Cells None, Urine Bacteria Trace, Hyaline Casts 3-5 06/07/24 08:08: Troponin I < 0.01 I & O for Last 24 hours: Intake & Output 06/04/24 06/05/24 06/06/24 06/07/24 23:59 23:59 23:59 23:59 Intake Total 540 / 540 Output Total 0 / 0 Balance 540 / 540 Weight 225 lb Constitutional Constitutional: no acute distress and cooperative *Routine HEENT Exam Eye: Present PERRL *Routine Respiratory Exam Respiratory: Present CTA bilaterally; Absent accessory muscle use, wheezes or crackles *Routine Cardiovascular Exam Cardiovascular: Present RRR, Normal S1 and Normal S2; Absent murmur, gallop or rubs *Routine Abdominal Exam Abdominal: Present soft; Absent tenderness *Routine Extremities Exam Extremities: Present pulses intact; Absent cyanosis or edema Comments: Left calf pain on palpation *Routine Skin Exam Skin: Present intact; Absent erythema or wounds *Routine Neurological Exam Neurological: Present alert and oriented X3 Routine Psychiatric Exam Psychiatric: Present cooperative Meds Home Medications and Allergies Home Medications ?Medication ?Instructions ?Recorded ?Confirmed ?Type metoprolol succinate 25 mg 25 mg PO DAILY 06/07/24 06/07/24 History tablet,extended release 24 hr New Prescriptions to Start Prescriptions: Allergies Allergy/AdvReac Type Severity Reaction Status Date / Time No Known Allergies Allergy Verified 03/11/22 00:08 Assessment and Plan *Assessment and plan (1) Pulmonary embolism and infarction: Status: Acute Category: Medical Code(s): I26.99 - Other pulmonary embolism without acute cor pulmonale (2) HTN (hypertension): Status: Acute Category: Medical Code(s): I10 - Essential (primary) hypertension (3) Deep vein thrombosis, lower left extremity: Status: Acute Category: Medical Code(s): I82.402 - Acute embolism and thrombosis of unspecified deep veins of left lower extremity (4) Hypertrophic cardiomyopathy: Status: Acute Category: Medical Code(s): I42.2 - Other hypertrophic cardiomyopathy Plan ECHO: Conclusion Normal biventricular systolic function. No evidence of JAYANT or LVOT obstruction at rest. Mild increase in the LV apical region (foreshortening vs. increased wall thickness). Mild RV dilation. Mild biatrial dilation. No significant valvular stenosis or regurgitation. In the setting of suggested recent diagnosis of possible HCM and presence of mild increase of apical LV wall thickness, further evaluation for apical HCM is suggested with outpatient cardiac MRI (HCM protocol) to conclusively rule out HCM diagnosed. Acute Bilat PE and LLE DVT - ECHO neg for RV strain and pt is hemodynamically stable. Recommend he ambulate with staff and if symptomatically stable can DC home with Eliquis starter pack - Will refer to heme-onc outpatient as this appears to be unprovoked VTE Hypertrophic Cardiomyopathy - cont BB - we can f/u with pt in office, will consider cardiac MRI Hypertension -Stable, continue home meds CV DC Plan: Eliquis starter pack Office f/u 1-2 weeks with us Refer to Dr. Cottrell - Heme/Onc for unprovoked VTE
[2024-06-07 12:00] VITALS: BP 166/86; PULSE 120; PULSE 96; RESP 20; O2SAT 96
[2024-06-07] MEDS: HYDROCODONE/APAP 5/325 MG TABLET 1 TAB PO (12:32)
--- NOTE | 2024-06-07 13:13 | ECG_ITS ---
APPROVED REPORT Exam: Resting ECG HR:105 bpm ECG Measurements Heart Rate 105 AXES FL 166 P 57 QRSd 97 QRS 57 QT 326 T 26 QTc 387 Conclusion SINUS TACHYCARDIA NONSPECIFIC T-WAVE ABNORMALITY ABNORMAL RHYTHM ECG UNCONFIRMED REPORT Electronically signed by : Parker Valenzuela MD 06/08/2024 20:56:45
--- NOTE | 2024-06-07 13:21 | PC.NURSE ---
pt c/o SOB and rt sided thoracic pain. Hospitalist was made aware. ordered EKG and troponin. EKG was interpreted by Perez Do. no significant EKG changes noted. troponin was collected by lab. vital signs were 162/96, HR 105, O2 95% on room air, and RR was 22. walk test performed per Georgette verbal order. pt did not drop below 90% while on room air. repeat vitals signs are 166/101, HR 116,94% on room air, and RR 20 after walk test. no new orders at this time. pt remains alert and oriented, no physical changes noted.
[2024-06-07 14:28] LABS: Troponin I < 0.01 ng/ml (0.00-0.034)
--- NOTE | 2024-06-07 15:49 | EXP.DC.SUM ---
General Admission date:: 06/07/24 Discharge date: 06/07/24 HPI HPI HPI: Cm Ramos is a 53-year-old male past medical history significant for HCM? who presents emergency room tonight with complaints of right sided thoracic pain . Mr. Ramos just drove 10 hours from [place]. Reports he had sharp pain that started on his right side, posterior ribs radiating around to the anterior chest. Pain is worse with inspiration. Reports a very mild shortness of breath. Mr. Ramos denies any blood clotting disorders in the past, no family history of clotting disorders. He has never had a pulmonary embolus before. Does not take blood thinners. Only takes a beta-mee daily for reported HCM. Reports that he last had a stress test and an echo done approximately 2 months ago. No abnormalities noted on the stress test. Patient is active, does go to the gym regularly. Does report some left-sided calf pain, reports he thinks it is just a muscle cramp. Denies any swelling in his lower extremities, no erythema noted. Denies tobacco use, alcohol use, illicit drug use. Lab work in the ER showed an elevated white count of 15,000, lipase slightly elevated at 309. UA was negative. CTA of the chest showed multiple pulmonary embolisms within the segmental and subsegmental branches of the right middle, right lower, and left lower lobes, does appear to be some right heart strain noted on the scan. Groundglass opacity in the right lower lobe developing infarct versus atelectasis. Patient was given a 1 mg/kg dose of Lovenox. He will be admitted to the hospitalist service for pulmonary embolus. Hospital Course Hospital Course Hospital Course: Assessment: This is a 53-year-old male being admitted for multiple pulmonary emboli with evidence of right heart strain on CTA. On my exam, patient is lying in bed in no acute distress. No complaints at this time. Case discussed with ER physician, request admission for further management including echo and cardiology eval. patient did well overnight. Remained on room air. Evaluated by cardiology. Ultrasound of lower extremities obtained showing left lower extremity DVT. Started on anticoagulation. Stable to discharge home with close follow-up with cardiology. Problems addressed as follows: Pulmonary emboli Evidence of right heart strain on CTA -Likely due to recent lengthy car ride, greater than 10 hours from [place] yesterday. However also reports that has been having left calf pain for over a week since working out. Thought it was a calf strain. Monitored on telemetry. Remained stable on room air. Echo obtained showing no right heart strain. Cardiology was consulted for evaluation and follow-up plans. Patient treated initially with Lovenox. Was transition to Eliquis, 1 month starter pack sent. Serial troponins remain negative. Lower extremity Doppler obtained showing left lower extremity DVT. Given patient's stability, discharge home, will follow-up with cardiology in the coming weeks after he travels back home to [place]. -Was evaluated for oxygen need prior to discharge with ambulation. No desats with ambulation. HTN: Continue metoprolol succinate 25 mg daily. Total time spent on discharge 32 minutes in counseling, documentation, chart review, and direct care with patient. Exam Data for Last 24 hours Vital signs and Labs for Last 24 Hours: Temp Pulse Resp BP Pulse Ox O2 Del Method 98.4 F 83 16 133/81 99 Room Air 06/07/24 05:58 06/07/24 06:20 06/07/24 05:58 06/07/24 05:58 06/07/24 02:03 06/07/24 06:45 Laboratory Results - last 24 hr 06/07/24 03:30: WBC 15.7 H, RBC 4.84, Hgb 14.9, Hct 44.9, MCV 92.7, MCH 30.7, MCHC 33.1, RDW 13.6, Plt Count 305, MPV 7.8, Neut % (Auto) 77.6, Lymph % (Auto) 15.1, Reynolds % (Auto) 5.8, Eos % (Auto) 1.0, Baso % (Auto) 0.5, Neut # (Auto) 12.2 H, Lymph # (Auto) 2.4, Reynolds # (Auto) 0.9, Eos # (Auto) 0.2, Baso # (Auto) 0.1, Total Counted 100, Neutrophils % (Manual) 71, Lymphocytes % (Manual) 20, Atypical Lymphs % 2.0, Monocytes % (Manual) 5, Eosinophils % (Manual) 2, Platelet Estimate Normal, RBC Morphology Normal, Sodium 142, Potassium 4.1, Chloride 104, Carbon Dioxide 28, Anion Gap 14.1, BUN 18, Creatinine 1.10, Estimated Creat Clear 110, Estimated GFR 69, Est GFR ( Amer) 84, Glucose 108 H, Calcium 9.3, Total Bilirubin 0.7, AST 43, ALT 46, Alkaline Phosphatase 93, Troponin I < 0.01, Total Protein 7.8, Albumin 4.4, Globulin 3.4 H, Albumin/Globulin Ratio 1.3, Lipase 309 H, Urine Color Yellow, Urine Appearance Clear, Urine pH 5.5, Ur Specific [place] >= 1.030, Urine Protein Negative, Urine Glucose (UA) Negative, Urine Ketones Negative, Urine Blood Negative, Urine Nitrate Negative, Urine Bilirubin Negative, Urine Urobilinogen 0.2, Ur Leukocyte Esterase Negative, Urine RBC Occasional, Urine WBC Occasional, Ur Squamous Epith Cells None, Urine Bacteria Trace, Hyaline Casts 3-5 I & O for Last 24 hours: Intake & Output 06/04/24 06/05/24 06/06/24 06/07/24 23:59 23:59 23:59 23:59 Weight 102.058 kg Constitutional Constitutional: no acute distress, obese and cooperative *Routine HEENT Exam Head: Present normocephalic Eye: Present EOMI and PERRL ENT: Present mucous membranes moist *Routine Neck Exam Neck: Present supple; Absent lymphadenopathy *Routine Respiratory Exam Respiratory: Present CTA bilaterally; Absent rhonchi, wheezes or crackles *Routine Cardiovascular Exam Cardiovascular: Present RRR *Routine Abdominal Exam Abdominal: Present soft and normoactive bowel sounds; Absent tenderness *Routine Rectal Exam Patient deferred: visual exam *Routine Exam Patient deferred: penile exam *Routine Extremities Exam Extremities: Absent cyanosis, clubbing or edema Comments: Tender left calf *Routine Skin Exam Skin: Present warm; Absent rash *Routine Neurological Exam Neurological: Present alert, oriented X3 and moving all extremities; Absent altered mental status or abnormal gait Routine Psychiatric Exam Psychiatric: Present normal affect Results Data Completed and Pending Labs on day of discharge: Labs from last 24 hours 06/07/24 03:30 WBC 15.7 H RBC 4.84 Hgb 14.9 Hct 44.9 MCV 92.7 MCH 30.7 MCHC 33.1 RDW 13.6 Plt Count 305 MPV 7.8 Neut % (Auto) 77.6 Lymph % (Auto) 15.1 Reynolds % (Auto) 5.8 Eos % (Auto) 1.0 Baso % (Auto) 0.5 Neut # (Auto) 12.2 H Lymph # (Auto) 2.4 Reynolds # (Auto) 0.9 Eos # (Auto) 0.2 Baso # (Auto) 0.1 Total Counted 100 Neutrophils % (Manual) 71 Lymphocytes % (Manual) 20 Atypical Lymphs % 2.0 Monocytes % (Manual) 5 Eosinophils % (Manual) 2 Platelet Estimate Normal RBC Morphology Normal Sodium 142 Potassium 4.1 Chloride 104 Carbon Dioxide 28 Anion Gap 14.1 BUN 18 Creatinine 1.10 Estimated Creat Clear 110 Estimated GFR 69 Est GFR ( Amer) 84 Glucose 108 H Calcium 9.3 Total Bilirubin 0.7 AST 43 ALT 46 Alkaline Phosphatase 93 Troponin I < 0.01 Total Protein 7.8 Albumin 4.4 Globulin 3.4 H Albumin/Globulin Ratio 1.3 Lipase 309 H Urine Color Yellow Urine Appearance Clear Urine pH 5.5 Ur Specific [place] >= 1.030 Urine Protein Negative Urine Glucose (UA) Negative Urine Ketones Negative Urine Blood Negative Urine Nitrate Negative Urine Bilirubin Negative Urine Urobilinogen 0.2 Ur Leukocyte Esterase Negative Urine RBC Occasional Urine WBC Occasional Ur Squamous Epith Cells None Urine Bacteria Trace Hyaline Casts 3-5 DS: Diagnosis Discharge Diagnosis (1) Pulmonary embolism and infarction: Status: Acute Code(s): I26.99 - Other pulmonary embolism without acute cor pulmonale (2) HTN (hypertension): Status: Acute Code(s): I10 - Essential (primary) hypertension Meds Home Medications and Allergies Home Medications ?Medication ?Instructions ?Recorded ?Confirmed ?Type apixaban 5 mg (74 tabs) tablets in 5 mg PO BID #74 tabs 06/07/24 Rx a dose pack (Eliquis DVT-PE Treat 30D Start) hydrocodone 5 mg-acetaminophen 325 1 tab PO Q8H PRN pain #9 tabs 06/07/24 Rx mg tablet metoprolol succinate 25 mg 25 mg PO DAILY 06/07/24 06/07/24 History tablet,extended release 24 hr New Prescriptions to Start Prescriptions: apixaban [Eliquis DVT-PE Treat 30D Start] Jasvir Schaefer hydrocodone-acetaminophen Jasvir Schaefer Allergies Allergy/AdvReac Type Severity Reaction Status Date / Time No Known Allergies Allergy Verified 03/11/22 00:08 Discharge Plan Disposition Patient Disposition: Home, Self-Care Condition: Fair Follow up Plan Follow up with: Provider,Referral, [Primary Care Provider] - Enter time for follow up Esdras Gabriel MD [Staff Physician] - 06/21/24 2:45 pm Prescriptions/Medication Reconciliation: New Eliquis DVT-PE Treat 30D Start 5 mg (74 tabs) tablets,dose pack 5 mg PO BID Qty: 74 0RF hydrocodone-acetaminophen 5-325 mg tablet 1 tab PO Q8H PRN (Reason: pain) Qty: 9 0RF Continued metoprolol succinate 25 mg tablet extended release 24 hr 25 mg PO DAILY Patient Comments: TAKE 1 TABLET BY MOUTH EVERY DAY Problem Reconciliation Problems Reviewed?: Yes Patient Discharge Instructions ACTIVITY: Continue current activity DIET: continue same diet Patient Instructions: DI for Pulmonary Embolism Print Language: Armenian Providers Primary Care Provider: Provider,Referral Admit Provider: Jasvir Schaefer Attending Provider: Jasvir Schaefer
[2024-06-07] MEDS: APIXABAN 5MG TABLET 10 MG PO (16:10)
--- NOTE | 2024-06-08 09:45 | SW/DCPLANNER ---
Spoke with the patient on the phone and he stated that he is about the same as he was when he was discharged. Patient was able to get his new prescriptions filled and that he is aware of his upcoming appointments. Patient stated that he has no concerns or questions at this time. Chris Do
== END 2024-06-07 16:25 | disposition home or self-care (01) ==
LOC: ER 02:09 → 2ND 05:31
PROVIDERS: Admitting Provider Internal Medicine Adolescent Medicine; Emergency Provider Emergency Medicine; Visit Provider Internal Medicine Adolescent Medicine
DX: I26.99 Other pulmonary embolism without acute cor pulmonale (principal); I26.94 Multiple subsegmental thrombotic pulmonary emboli without acute cor pulmonale; I82.432 Acute embolism and thrombosis of left popliteal vein; I82.452 Acute embolism and thrombosis of left peroneal vein; I42.2 Other hypertrophic cardiomyopathy; I10 Essential (primary) hypertension
CPT/HCPCS: 36415; 71275; 74176; 74177; 80053; 81001; 83690; 84484; 85007; 85025; 85027; 93005; 93306; 93970; 99291; G0378; J1650; Q9967

== ENCOUNTER 2025-04-03 19:17 | Emergency (ER) | payer OTHER, SELFPAY ==
[2025-04-03] VITALS (8 sets, daily range): BP systolic 134–173; BP diastolic 82–97; PULSE 78–102; RESP 17; TEMP 37.1; O2SAT 95–99; BMI 31.1
--- OUTSIDE RECORDS SUMMARY | 2025-04-03 20:11 | XMS_ITS | Clinical Summary ---
Author Organization [facility] Address [address] [place] [address] Care Team Providers Care Spa Director/Finance Name Role Phone Pcp, No Primary Care Provider Unavailabl e Allergies No known active allergies Social History Tobacco Use Types Packs/Day Years Used Date Smoking Tobacco: Never Assessed Sex and Gender Information Value Date Recorded Sex Assigned at Not on file Legal Sex Male 5:38 PM EDT Gender Identity Not on file Sexual Orientation Not on file Last Filed Vital Signs Vital Sign Reading Time Taken Comments Blood Pressure 129/75 10/28/2023 3:26 AM EDT Pulse 93 10/28/2023 3:26 AM EDT Temperature 36.8 C (98.2 F) 10/28/2023 3:26 AM EDT Respiratory Rate 14 10/28/2023 3:26 AM EDT Oxygen Saturation 98% 10/28/2023 3:26 AM EDT Inhaled Oxygen Concentration - - Weight 103 kg (227 lb 15.3 oz) 10/27/2023 5:52 P M EDT Height 182.9 cm (6') 10/27/2023 5:52 PM EDT Body Mass Index 30.92 10/27/2023 5:52 PM EDT Plan of Treatment Health Maintenance Due Date Last Done Comments [facility]-Depression Screening 1968 [facility]-/Child/Adol SDOH Screenings 1968 [facility]-Obesity Intervention 1974 [facility]- SDOH Screenings 1986 [facility]-Adult SDOH Screenings 1986 [facility]-DTaP,Tdap,and Td Vaccine s (1 - Tdap) 1987 [facility]-Hepatitis B Vaccines (1 of 3 - 19+ 3-dose series) 1987 CT Colonography 2013 Colonoscopy 2013 FIT-DNA 2013 FIT 2013 FOBT 2013 Sigmoidoscopy 2013 [facility]-Colorectal Cancer Screening 2013 [facility]-Pneumococcal Vaccine: 50 + Years (1 of 1 - PCV) 2018 [facility]-Zoster Vaccines (1 of 2) 2018 [id number] Vaccine (1 - 20 24-25 season) 2025 [facility]-Influenza Vaccine (#1) 2025 [facility]-HIV Screening Completed 10/27/2023 [facility]-Hepatitis C Screening Completed 10/27/2023 HPV Vaccines Aged Out No longer eligi ble based on patient's age to complete this topic [facility]-HIB Vaccines Aged Out No longer e ligible based on patient's age to complete this topic [facility]-Hepatitis A Vaccines Aged Out No longer eligible based on patient's age to complete this topic [facility]-IPV Vaccines Aged Out No longer e ligible based on patient's age to complete this topic [facility]-Rotavirus Vaccines Aged Out No lo nger eligible based on patient's age to complete this topic Procedures Procedure Name Priority Date/Time Associated Diagnosis Comments HEPATITIS C ANTIBODY - ED W/REFLEX TO HCV QUANT PCR STAT 10/27/2023 7:42 PM EDT ED HIV 1/2 ANTIBODY/ANTIGEN SCREEN WITH REFLEX TO HIV I/II DIFFERENTIATION STAT 10/27/2023 7:42 PM EDT from Last 3 Months or Most Recently Relevant to Health Maintenance Results * ED HIV 1/2 Antibody/Antigen Screen w/Reflex to HIV 1/2 Differentiation (10/27/2023 7:42 PM EDT) HIV 1 & 2 Antibody/Antigen Screen Non Reactive Non Reactive 10/27/2023 8:40 PM EDT [facility] Comment:Screening for HIV 1 & 2 antibodies, and P24 antigen is NONREACTIVE. No confirmatory testing is required. Blood Venous blood specimen / Unknown Venipuncture / Unknown 10/27/2023 7:42 PM EDT 10/27/2023 7:59 PM EDT Radha Urrutia MD LAB BLOOD ORDERABLES Final Re sult [facility] [address] [place] [address] * Hepatitis C Antibody - ED (10/27/2023 7:42 PM EDT) Hepatitis C Antibody Negative Negative 10/27/2023 8:40 PM EDT [facility] Blood Venous blood specimen / Unknown Venipuncture / Unknown 10/27/2023 7:42 PM EDT 10/27/2023 7:59 PM EDT Radha Urrutia MD LAB BLOOD ORDERABLES Final Re sult Performing Organization Address City/[facility]/ZIP Co de Phone Number [facility] [address] [place] [address] from Last 3 Months or Most Recently Relevant to Health Maintenance Insurance [employer] Care Teams Spa Director/Finance Relationship Specialty Start Date End Date Pcp, Trisha [address] [place] [address] PCP - General Family Medicine 10/27/23
--- NOTE | 2025-04-03 21:26 | ED_ITS ---
<Statement entered by Kitty Tang DO - 04/08/25 02:11> I was consulted by the ENRICO, and we discussed the complexity of problems being addressed. I approve the treatment and management plan for this patient's care in the emergency department, thus performing a substantial portion of the medical decision making. Kitty Tang DO Discharge Plan Disposition Patient Disposition: Home, Self-Care Condition: Good Prescriptions Prescriptions: No Action metoprolol succinate 25 mg tablet extended release 24 hr 25 mg PO DAILY Patient Comments: TAKE 1 TABLET BY MOUTH EVERY DAY Eliquis DVT-PE Treat 30D Start 5 mg (74 tabs) tablets,dose pack 5 mg PO BID Qty: 74 0RF hydrocodone-acetaminophen 5-325 mg tablet 1 tab PO Q8H PRN (Reason: pain) Qty: 9 0RF Referrals Follow up/Referrals: Alfonzo Ho MD [Primary Care Provider, Medical] - See instructions Cm Nguyen MD [Staff Physician, General Surgery] - See instructions Activity Restrictions/Add. Instructions Additional Instructions/Restrictions: Call general surgery to schedule an appointment if you decide that it is causing you discomfort. You can take tylenol as needed for pain control. Use compressive wrappings and ice as needed. You can use rollers or a massage gun as well. You can try a dount or other pillows to help with comfort with sitting and sleeping. You do have some incidental lesions notes on your spleen that you need to follow-up with your primary care provider for serial imaging and further work- up. Clinical Impressions Clinical Impression: Hematoma of right thigh Print Language Print Language: Cymro Discharge ED Provider: Kitty Tang General Adult HPI <Bianca Burgos, BUDGET DIRECTOR - Last Filed: 04/03/25 21:43> General Chief complaint: PAIN Stated complaint: AO Fallx 1 Week ago; Upper Thigh Hemotoma Time Seen by Provider: 04/03/25 20:40 Mode of Arrival: Ambulatory Description of Symptoms (Recalled from ER Triage Doc. by RN): fell two weeks ago onto a pointed rock. states the hip pain subsided over time. Advised today when going prone on a creeper, patient felt a pop, states buring pain since around 1200. PMS still intact. Bruising noted just inferior to the hip, mid thigh. 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 Mr. Ramos states that approximately 2 weeks ago, he fell onto a rock onto his right hip. Had extensive bruising and a large hematoma at that time due to being on Eliquis. No pain in the hip joint or bony pain per se. Reports it was improving over the last 2 weeks. Reports that he was going to use a mechanical work on a vehicle today and went to lay down on the ground onto his right side. States he felt a pop in his right hip and had pain where the hematoma is. Denies any bony hip pain, is able to walk without pain. Just has peripheral type pain from a bruise when he tries to sit down. Hematoma on his hip has not changed in size over the last 2 weeks, did not change in size today after he felt this pop. Has full range of motion in his hip. No other complaints at this time. Related Data Home Medications ?Medication ?Instructions ?Recorded ?Confirmed metoprolol succinate 25 mg 25 mg PO DAILY 06/07/24 tablet,extended release 24 hr Previous Rx's ?Medication ?Instructions ?Recorded apixaban 5 mg (74 tabs) tablets in 5 mg PO BID #74 tab s 06/07/24 a dose pack (Eliquis DVT-PE Treat 30D Start) hydrocodone 5 mg-acetaminophen 325 1 tab PO Q8H PRN pa in #9 tabs 06/07/24 mg tablet Allergies Allergy/AdvReac Type Severity Reaction Status Date / Time No Known Allergies Allergy Verified 03/11/22 00:08 [facility] <Bianca Burgos APRN - Last Filed: 04/03/25 21:43> [facility] Disclaimer: The information contained in this section may have been updated after the patient was seen, as this information can be updated by other users. Medical History HOCM (hypertrophic obstructive cardiomyopathy) Surgical History History of lithotripsy Social History (Updated 06/07/24 @ 20:55 by Jasvir Schaefer MD) Smoking Status: Never smoker alcohol intake: never current occupational status: employed Travel in the last 8 weeks?: Inside the [place] Have you lived/traveled outside US in past 30 days?: No Contact w/someone who lives/traveled outside US past 30 days?: No Exposure to someone with infectious disease in past 14 days?: No Do you have a fever (greater than 100.4 F or 38 C)?: No Have you tested positive for COVID-19?: No Exposed to someone with COVID-19 in past 14 days?: No Do you have a sore throat?: No Do you have a cough?: No Do you have any weakness?: No Do you have any diarrhea?: No Are you experiencing any unusual bleeding?: No Do you have any muscle aches/pain?: No Do you have any abdominal pain?: No Are you experiencing loss of taste or smell?: No Other Medical History Have you received the Flu Vaccine for this season: No Have you received the Pneumonia Vaccine: No <Bianca Burgos, BUDGET DIRECTOR - Last Filed: 04/03/25 21:43> ROS Obtained: Yes All systems reviewed & no additional complaints except as documented Physical Exam <Bianca Burgos, BUDGET DIRECTOR - Last Filed: 04/03/25 21:43> General General appearance: alert and in no apparent distress Head Head exam: atraumatic, normocephalic and normal inspection Eye Eye exam: Present normal appearance, PERRL and EOMI ENT ENT exam: Present normal exam, normal oropharynx, mucous membranes moist, TM's normal bilaterally and normal external ear exam Neck Neck exam: Present normal inspection, full ROM and trachea midline; Absent meningismus or lymphadenopathy Chest Chest inspection: Present normal inspection and symmetric chest wall rise; Absent tenderness Respiratory Respiratory exam: Present normal lung sounds bilaterally; Absent respiratory distress Cardiovascular Cardiovascular exam: Present regular rate and normal rhythm; Absent JVD Abdominal Exam Abdominal exam: Present soft and normal bowel sounds; Absent distention, tenderness or guarding Extremities Exam Extremities exam: Present normal inspection, full ROM, normal capillary refill and other (Large hematoma noted on the right lateral aspect of the gluteus damien, firm, TTP,); Absent calf tenderness Back Exam Back exam: Present normal inspection; Absent tenderness Neurological Exam Neurological exam: Present alert and oriented X3 Psychiatric Psychiatric exam: Present normal affect and normal mood Skin Skin exam: Present warm, dry, intact and normal color Lymphatic Lymphatic Findings: no adenopathy Medical Decision Making <Bianca Burgos, BUDGET DIRECTOR - Last Filed: 04/03/25 21:43> Medical Records Screening: Per USPSTF and CDC recommendations, given the prevalence of disease in our region, it is our hospital?s policy to screen for HIV and viral Hepatitis for all patients aged 18 and over and those with ongoing risk factors. Vital Signs: 04/03/25 19:53 04/03/25 20:38 04/03/25 20:48 Temperature Temperature Source Pulse Rate 102 H 96 H Pulse Rate [Right] 78 Respiratory Rate 17 Blood Pressure 173/93 H 134/88 Blood Pressure [Right Arm] 159/97 H Blood Pressure Mean Blood Pressure Mean [Right Arm] 117 Blood Pressure Source [Right Arm] Automatic Cuff Blood Pressure Position 02 Sat by Pulse Oximetry 95 99 97 Oxygen Delivery Method 04/03/25 21:30 04/03/25 22:00 04/03/25 22:52 Temperature 98.8 F Temperature Source Oral Pulse Rate 80 87 Pulse Rate [Right] Respiratory Rate 17 Blood Pressure 142/83 H 143/90 H 154/89 H Blood Pressure [Right Arm] Blood Pressure Mean 106 104 Blood Pressure Mean [Right Arm] Blood Pressure Source [Right Arm] Blood Pressure Position Sitting 02 Sat by Pulse Oximetry 98 Oxygen Delivery Method Room Air 04/03/25 23:00 04/03/25 23:30 Temperature Temperature Source Pulse Rate 80 Pulse Rate [Right] Respiratory Rate Blood Pressure 137/82 149/86 H Blood Pressure [Right Arm] Blood Pressure Mean 96 107 Blood Pressure Mean [Right Arm] Blood Pressure Source [Right Arm] Blood Pressure Position 02 Sat by Pulse Oximetry 98 Oxygen Delivery Method Lab Data Lab Results 04/03/25 20:50: WBC 15.2 H, RBC 4.50 L, Hgb 14.2, Hct 41.2 L, MCV 91.6, MCH 31.6 H, MCHC 34.5, RDW 13.6, Plt Count 288, MPV 10.4, Neut % (Auto) 74.5, Lymph % (Auto) 16.5, Kings % (Auto) 7.2, Eos % (Auto) 0.9, Baso % (Auto) 0.6, Neut # (Auto) 11.4 H, Lymph # (Auto) 2.5, Kings # (Auto) 1.1 H, Eos # (Auto) 0.1, Baso # (Auto) 0.1, Sodium 141, Potassium 4.0, Chloride 104, Carbon Dioxide 26, Anion Gap 15.0, BUN 18, Creatinine 1.10, Estimated Creat Clear 111, Estimated GFR 69, Est GFR ( Amer) 84, Glucose 101 H, Calcium 9.5, Total Bilirubin 0.7, AST 41, ALT 34, Alkaline Phosphatase 65, Total Protein 7.9, Albumin 4.8, Globulin 3.1, Albumin/Globulin Ratio 1.5 04/03/25 20:50 04/03/25 20:50 Orders (Tests/Meds): ED MEDICATIONS Discontinued Medications Generic Name Dose Route Start Last Admin Trade Name Freq PRN Reason Stop Dose Admin Iopamidol 75 ml 04/03/25 22:31 04/03/25 22:35 Iopamidol-370 (76%);100ml Bottle IV 04/03/25 22:32 75 ml ONCE ONE Administration Sodium Chloride 10 ml 04/03/25 22:31 04/03/25 22:36 Sodium Chloride 0.9% 10ml Syr (Rad Only) IV 05/03/25 22:30 10 ml NEEDED PRN Administration Maintain IV Site ORDERS Category Date Time Status CT abdomen pelvis w con Stat Cat Scan 04/03/25 21:40 Completed POCUS Point of Care (ER Only) Stat Exams 04/03/25 21:40 Completed CBC w/Auto Diff [Complete Blood Count Auto Diff] Stat Lab 04/03/25 20:50 Completed CMP [Comprehensive Metabolic Panel] Stat Lab 04/03/25 20:50 Completed Medical Decision Narrative: In summary patient is an 54-year-old male who presents emergency department for evaluation of hematoma after a mechanical fall 2 weeks ago, then had a popping sensation after he laid on the hematoma this evening. Patient is hemodynamically stable upon arrival, afebrile. Unremarkable nonfocal physical exam except for the large hematoma noted on the lateral aspect of his right gluteus damien muscle, tender to palpation, firm. Differential diagnosis includes hematoma, hip fracture. Initial workup will be conducted with [id number] ultrasound done in the ER by ER attending as well as a CT scan of the abdomen pelvis. Initial workup reviewed by me [hematologic labs remarkable for? Imaging remarkable for? Urinalysis interpreted by me and remarkable for]. Upon repeat evaluation [patient had acceptable resolution of symptoms, had persistent pain for which additional events were conducted (describe interventions), tolerated p.o., was ambulatory, etc.]. Given this [patient is appropriate for discharge at this time will be discharged with a prescription for? The case was discussed with hospital medicine regarding management they will meet the patient in the service for continued evaluation at this time? Etc.] <Kitty Tang, DO - Last Filed: 04/08/25 02:12> [facility] Inquiry Pt receiving controlled substance: No Vital Signs: 04/03/25 19:53 04/03/25 20:38 04/03/25 20:48 Temperature Temperature Source Pulse Rate 102 H 96 H Pulse Rate [Right] 78 Respiratory Rate 17 Blood Pressure 173/93 H 134/88 Blood Pressure [Right Arm] 159/97 H Blood Pressure Mean Blood Pressure Mean [Right Arm] 117 Blood Pressure Source [Right Arm] Automatic Cuff Blood Pressure Position 02 Sat by Pulse Oximetry 95 99 97 Oxygen Delivery Method 04/03/25 21:30 04/03/25 22:00 04/03/25 22:52 Temperature 98.8 F Temperature Source Oral Pulse Rate 80 87 Pulse Rate [Right] Respiratory Rate 17 Blood Pressure 142/83 H 143/90 H 154/89 H Blood Pressure [Right Arm] Blood Pressure Mean 106 104 Blood Pressure Mean [Right Arm] Blood Pressure Source [Right Arm] Blood Pressure Position Sitting 02 Sat by Pulse Oximetry 98 Oxygen Delivery Method Room Air 04/03/25 23:00 04/03/25 23:30 Temperature Temperature Source Pulse Rate 80 Pulse Rate [Right] Respiratory Rate Blood Pressure 137/82 149/86 H Blood Pressure [Right Arm] Blood Pressure Mean 96 107 Blood Pressure Mean [Right Arm] Blood Pressure Source [Right Arm] Blood Pressure Position 02 Sat by Pulse Oximetry 98 Oxygen Delivery Method Lab Data Lab results reviewed: Yes I reviewed the patient's lab results. Lab Results 04/03/25 20:50: WBC 15.2 H, RBC 4.50 L, Hgb 14.2, Hct 41.2 L, MCV 91.6, MCH 31.6 H, MCHC 34.5, RDW 13.6, Plt Count 288, MPV 10.4, Neut % (Auto) 74.5, Lymph % (Auto) 16.5, Kings % (Auto) 7.2, Eos % (Auto) 0.9, Baso % (Auto) 0.6, Neut # (Auto) 11.4 H, Lymph # (Auto) 2.5, Kings # (Auto) 1.1 H, Eos # (Auto) 0.1, Baso # (Auto) 0.1, Sodium 141, Potassium 4.0, Chloride 104, Carbon Dioxide 26, Anion Gap 15.0, BUN 18, Creatinine 1.10, Estimated Creat Clear 111, Estimated GFR 69, Est GFR ( Amer) 84, Glucose 101 H, Calcium 9.5, Total Bilirubin 0.7, AST 41, ALT 34, Alkaline Phosphatase 65, Total Protein 7.9, Albumin 4.8, Globulin 3.1, Albumin/Globulin Ratio 1.5 Orders (Tests/Meds): ED MEDICATIONS Discontinued Medications Generic Name Dose Route Start Last Admin Trade Name Freq PRN Reason Stop Dose Admin Iopamidol 75 ml 04/03/25 22:31 04/03/25 22:35 Iopamidol-370 (76%);100ml Bottle IV 04/03/25 22:32 75 ml ONCE ONE Administration Sodium Chloride 10 ml 04/03/25 22:31 04/03/25 22:36 Sodium Chloride 0.9% 10ml Syr (Rad Only) IV 05/03/25 22:30 10 ml NEEDED PRN Administration Maintain IV Site ORDERS Category Date Time Status CT abdomen pelvis w con Stat Cat Scan 04/03/25 21:40 Completed POCUS Point of Care (ER Only) Stat Exams 04/03/25 21:40 Completed CBC w/Auto Diff [Complete Blood Count Auto Diff] Stat Lab 04/03/25 20:50 Completed CMP [Comprehensive Metabolic Panel] Stat Lab 04/03/25 20:50 Completed Medical Decision Narrative: In summary patient is an 54-year-old male who presents emergency department for evaluation of hematoma after a mechanical fall 2 weeks ago, then had a popping sensation after he laid on the hematoma this evening. Patient is hemodynamically stable upon arrival, afebrile. Unremarkable nonfocal physical exam except for the large hematoma noted on the lateral aspect of his right gluteus damien muscle, tender to palpation, firm. Differential diagnosis includes hematoma, hip fracture. Initial workup will be conducted with [id number] ultrasound done in the ER by ER attending as well as a CT scan of the abdomen pelvis. Labs were reviewed and interpreted by myself: CBC showed mild leukocytosis, hemoglobin was stable. CMP was unremarkable. Bedside ultrasound showed mixed density fluid collection on the right side. CT abdomen pelvis was obtained which showed similar mixed hypodensity likely hematoma without active extravasation. If hematoma left significantly large causing patient's significant distress. I discussed with the patient that I could potentially discuss with interventional radiology versus general surgery for possible drainage of the hematoma given that it was causing him significant pain and inability to lay on that side or sit. Patient stated that she would prefer to go home and give it time to resolve and if it does not she will call general surgery. Patient was sent with the referral the patient was otherwise discharged home in stable condition, return precautions were discussed. Critical Care <Kitty Tang, DO - Last Filed: 04/08/25 02:12> Critical Care Time Critical Care Time: No
--- NOTE | 2025-04-03 21:40 | CT_ITS ---
PROCEDURE INFORMATION: Exam: CT Abdomen And Pelvis With Contrast Exam date and time: 04/03/2025 10:29 PM Age: 54 years old Clinical indication: Pain; Other: Right gluteal hematoma TECHNIQUE: Imaging protocol: Computed tomography of the abdomen and pelvis with contrast. Radiation optimization: All CT scans at this facility use at least one of these dose optimization techniques: automated exposure control; mA and/or kV adjustment per patient size (includes targeted exams where dose is matched to clinical indication); or iterative reconstruction. Contrast material: ISOVUE; Contrast volume: 75 ml; Contrast route: IV; COMPARISON: CT ABDOMEN PELVIS W CON 06/07/2024 4:04 AM FINDINGS: Coronary arteries: Mild coronary artery calcifications. Liver: Mild hepatomegaly. Gallbladder and biliary ducts: No calcified stones. No ductal dilation. Pancreas: Normal. No ductal dilation. Spleen: Multiple hypodense lesions throughout the spleen up to 3 x 2 cm (series 3, image 28), similar size to prior exam however are incompletely characterized. Adrenal glands: Unremarkable. Kidneys and ureters: Bilateral nonobstructive calcified calyceal renal stones. No hydronephrosis. Stomach and bowel: Unremarkable. No obstruction. No mucosal thickening. Appendix: No evidence of appendicitis. Intraperitoneal space: No free air. No fluid collection. Vasculature: Unremarkable. No abdominal aortic aneurysm. Lymph nodes: No enlarged lymph nodes. Urinary bladder: Unremarkable as visualized. Reproductive: Prostatomegaly. Bones/joints: No acute fracture. Mild multilevel spondylosis. Soft tissues: Partially included mixed density fluid collection in the right lateral hip soft tissues overlying the iliotibial band measuring 4.7 x 10 x 7.4 cm likely representing a hematoma. IMPRESSION: 1. Partially included mixed density fluid collection in the right lateral hip soft tissues overlying the iliotibial band likely representing a hematoma. No definite active contrast extravasation, however lesion is incompletely included and contrast timing is not optimal for contrast extravasation detection. 2. Multiple hypodense lesions throughout the spleen, similar size to prior exam however are incompletely characterized. Recommend evaluation with non-emergent contrast-enhanced MRI for further evaluation.
[2025-04-03 21:58] LABS: Hematocrit 41.2 % (42.0-52.0); Hemoglobin 14.2 g/dL (14.1-18.0); Immature Granulocytes % 0.3 %; Mean Corpuscular HGB Conc 34.5 g/dL (31.8-35.4); Mean Corpuscular Hemoglobin 31.6 pg (27.0-31.2); Mean Corpuscular Volume 91.6 fl (80-94); Nucleated Red Blood Cells % 0 %; Platelet Count 288 K/mm3 (142-424); Red Blood Count 4.50 M/mm3 (4.60-6.20); Red Cell Distribution Width-SD 46.0 fL; White Blood Count 15.2 K/mm3 (4.8-10.8)
[2025-04-03 22:03] LABS: Albumin Level 4.8 g/dl (3.5-5.0); Chloride 104 mmol/L (98-107); Potassium 4.0 mmoL/L (3.5-5.1); Sodium 141 mmol/L (136-145)
[2025-04-03 22:06] LABS: Alanine Aminotransferase 34 U/L (12-78); Albumin/Globulin Ratio 1.5 (1.1-1.8); Alkaline Phosphatase 65 U/L (38-126); Anion Gap 15.0 mEq/L (5-15); Aspartate Amino Transferase 41 U/L (17-59); Bilirubin,Total 0.7 mg/dl (0.2-1.3); Blood Urea Nitrogen 18 mg/dl (9-20); Calcium 9.5 mg/dl (8.4-10.2); Carbon Dioxide 26 mmol/L (22.0-30.0); Creatinine Clearance Estimated 111 mL/min (50-200); Creatinine,Serum 1.10 mg/dl (0.66-1.25); Estimated Glomerular Filt Rate 69 ml/min (>60); GFR (African American) 84 ML/MIN (>60); Globulin 3.1 g/dL (1.3-3.2); Glucose 101 mg/dl (74-100); Total Protein,Serum 7.9 g/dl (6.3-8.2)
[2025-04-03] MEDS: IOPAMIDOL-370 (76%);100ML BOTTLE 75 ML IV (22:35)
[2025-04-03] MEDS: SODIUM CHLORIDE 0.9% 10ML SYR (RAD ONLY) 10 ML IV (22:36)
== END 2025-04-03 23:59 | disposition home or self-care (01) ==
PROVIDERS: Emergency Provider Student in an Organized Health Care Education/Training Program; PCP Family Medicine
DX: S70.11XA Contusion of right thigh, initial encounter (principal); I10 Essential (primary) hypertension; Z86.711 Personal history of pulmonary embolism; Z79.01 Long term (current) use of anticoagulants; W19.XXXA Unspecified fall, initial encounter
CPT/HCPCS: 74177; 80053; 85025; 99284; Q9967

== ENCOUNTER 2025-05-27 12:40 | Emergency (ER) | payer OTHER, SELFPAY ==
[2025-05-27] VITALS (7 sets, daily range): BP systolic 134–152; BP diastolic 87–106; PULSE 70–102; RESP 13–18; TEMP 36.8–37; O2SAT 95–98; BMI 31.1
--- NOTE | 2025-05-27 12:46 | ED_ITS ---
<Statement entered by Roque Siu MD - 05/27/25 15:21> I was consulted by the ENRICO, and we discussed the complexity of the problems being addressed. I approve the treatment and management plan for this patient's care in the emergency department, thus performing a substantive portion of the medical decision making. Roque Siu MD Discharge Plan Disposition Patient Disposition: Home, Self-Care Condition: Good Prescriptions Prescriptions: No Action metoprolol succinate 25 mg tablet extended release 24 hr 25 mg PO DAILY Patient Comments: TAKE 1 TABLET BY MOUTH EVERY DAY Eliquis DVT-PE Treat 30D Start 5 mg (74 tabs) tablets,dose pack 5 mg PO BID Qty: 74 0RF hydrocodone-acetaminophen 5-325 mg tablet 1 tab PO Q8H PRN (Reason: pain) Qty: 9 0RF Referrals Follow up/Referrals: Alfonzo Ho MD [Primary Care Provider, Medical] - See instructions Esdras Gabriel MD [Staff Physician, Cardiology] - See instructions Activity Restrictions/Add. Instructions Additional Instructions/Restrictions: Please return to the emergency department with any worsening signs or symptoms. 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 Please continue to take all your medication as prescribed Clinical Impressions Clinical Impression: Episodic lightheadedness, Near syncope Instructions Patient Instructions: DI for Dizziness-Nonvertigo Print Language Print Language: Albanian Discharge ED Provider: Roque Siu General Adult HPI <LAKSHMI Bernal - Last Filed: 05/27/25 14:39> General Chief complaint: Dizziness Stated complaint: dizziness Time Seen by Provider: 05/27/25 12:43 Mode of Arrival: Ambulatory Source of Information: Patient and Significant Other Limitations: No Limitations History of Present Illness HPI narrative: 54-year-old male presents to the emergency department accompanied by his for a 1 day history of presyncope/near syncope that occurred last night with the patient that he was walking the dog , patient states that he stopped walking the dog with some improvement of his symptoms, he did not go from a sitting to standing position, states the patient has endorsed on and off lightheadedness for the last 6 months to a year, patient denies any active vertiginous symptoms at rest, denies any room spinning sensation, denies any headache, does admit to pressure , as well as some lightheadedness currently, which prompted emergency department visit. Patient denies any fever chills chest pain shortness of breath nausea vomiting constipation diarrhea no abdominal pain, no visual disturbance, no blurry vision no double vision no flashes or floaters, no numbness or tingling, no upper or lower extremity weakness, no saddle anesthesia, no urinary bladder or bowel dysfunction, of note, patient states that he is noticed some lip swelling , for the last several weeks, thought it was initially with certain foods, however still having some swelling at times, patient denies any urinary symptomatology, patient denies any alcohol tobacco or drug use, other past medical history consistent with factor V Leiden, on anticoagulation therapy with Eliquis, because of prior PE/DVT, hypertension, otherwise unremarkable past medical history. Initial triage vitals are unremarkable. Please note that above description of symptoms, in this electronic medical record under categorization of recalled from ER triage doctor by RN are reflective of an initial nursing assessment, however, is not reflective of my full history and physical exam that was personally taken and clarified. Consequentially, this preceding description of symptoms, which may include the patient's categorized chief complaint in the EMR, do not reflect my personal clinical impression, and the ultimate description of history of present illness and patient stated complaints should be deferred to this section of the note. Unless stated otherwise or congruent with this section of the note, additional signs, symptoms, or incongruence should be interpreted as inaccurate with my clinical impression. Onset (ago): day(s) Related Data Home Medications ?Medication ?Instructions ?Recorded ?Confirmed metoprolol succinate 25 mg 25 mg PO DAILY 06/07/24 tablet,extended release 24 hr Previous Rx's ?Medication ?Instructions ?Recorded apixaban 5 mg (74 tabs) tablets in 5 mg PO BID #74 tab s 06/07/24 a dose pack (Eliquis DVT-PE Treat 30D Start) hydrocodone 5 mg-acetaminophen 325 1 tab PO Q8H PRN pa in #9 tabs 06/07/24 mg tablet Allergies Allergy/AdvReac Type Severity Reaction Status Date / Time No Known Allergies Allergy Verified 03/11/22 00:08 [facility] <LAKSHMI Bernal - Last Filed: 05/27/25 14:39> [facility] Disclaimer: The information contained in this section may have been updated after the patient was seen, as this information can be updated by other users. Medical History HOCM (hypertrophic obstructive cardiomyopathy) Surgical History History of lithotripsy Social History (Updated 06/07/24 @ 20:55 by Jasvir Schaefer MD) Smoking Status: Never smoker alcohol intake: never current occupational status: employed Travel in the last 8 weeks?: Inside the [place] Have you lived/traveled outside US in past 30 days?: No Contact w/someone who lives/traveled outside US past 30 days?: No Exposure to someone with infectious disease in past 14 days?: No Do you have a fever (greater than 100.4 F or 38 C)?: No Have you tested positive for COVID-19?: No Exposed to someone with COVID-19 in past 14 days?: No Do you have a sore throat?: No Do you have a cough?: No Do you have any weakness?: No Do you have any diarrhea?: No Are you experiencing any unusual bleeding?: No Do you have any muscle aches/pain?: No Do you have any abdominal pain?: No Are you experiencing loss of taste or smell?: No Other Medical History Have you received the Flu Vaccine for this season: No Have you received the Pneumonia Vaccine: No <LAKSHMI Bernla - Last Filed: 05/27/25 14:39> ROS Obtained: Yes All systems reviewed & no additional complaints except as documented Physical Exam <LAKSHMI Bernal - Last Filed: 05/27/25 14:39> General General appearance: alert and in no apparent distress Head Head exam: atraumatic and normocephalic Eye Eye exam: Present PERRL and EOMI ENT ENT exam: Present mucous membranes moist Neck Neck exam: Present normal inspection Chest Chest inspection: Present normal inspection and symmetric chest wall rise Respiratory Respiratory exam: Present normal lung sounds bilaterally; Absent respiratory distress, wheezes or stridor Cardiovascular Cardiovascular exam: Present regular rate and normal rhythm Abdominal Exam Abdominal exam: Present soft; Absent tenderness, guarding, rebound or rigidity Extremities Exam Extremities exam: Present normal inspection Neurological Exam Neurological exam: Present alert, oriented X3 and other (5 out of 5 strength in the bilateral lower and upper extremities, no gross sensation deficit, no pronator drift in the upper extremities, no limb drift of the lower extremities.) Psychiatric Psychiatric exam: Present normal affect Skin Skin exam: Present warm and dry Medical Decision Making <LAKSHMI Bernal - Last Filed: 05/27/25 14:39> Medical Records Medical records reviewed: Yes I reviewed the patient's medical records. Screening: Per USPSTF and CDC recommendations, given the prevalence of disease in our region, it is our hospital?s policy to screen for HIV and viral Hepatitis for all patients aged 18 and over and those with ongoing risk factors. Yaron Inquiry Pt receiving controlled substance: No Yaron was queried for this patient: No Vital Signs: 05/27/25 12:55 05/27/25 13:00 05/27/25 13:06 Temperature 98.6 F Temperature Source Oral Pulse Rate Pulse Rate [Orthostatic Lying] 94 H Pulse Rate [Orthostatic Sitting] 95 H Pulse Rate [Orthostatic Standing] 102 H Pulse Rate [Right] 93 H Respiratory Rate 18 15 Blood Pressure 144/94 H Blood Pressure [Orthostatic Lying Left Arm] 135/87 Blood Pressure [Orthostatic Sitting Left Arm] 148/94 H Blood Pressure [Orthostatic Standing Left Arm] 134/97 H Blood Pressure [Right Arm] 152/106 H Blood Pressure Mean [Right Arm] 121 Blood Pressure Source [Right Arm] Automatic Cuff Blood Pressure Position [Right Arm] Sitting 02 Sat by Pulse Oximetry 98 Oxygen Delivery Method Room Air 05/27/25 13:45 05/27/25 14:00 Temperature Temperature Source Pulse Rate 84 79 Pulse Rate [Orthostatic Lying] Pulse Rate [Orthostatic Sitting] Pulse Rate [Orthostatic Standing] Pulse Rate [Right] Respiratory Rate 15 17 Blood Pressure 140/88 141/90 H Blood Pressure [Orthostatic Lying Left Arm] Blood Pressure [Orthostatic Sitting Left Arm] Blood Pressure [Orthostatic Standing Left Arm] Blood Pressure [Right Arm] Blood Pressure Mean [Right Arm] Blood Pressure Source [Right Arm] Blood Pressure Position [Right Arm] 02 Sat by Pulse Oximetry 96 96 Oxygen Delivery Method Room Air Room Air Lab Data Lab results reviewed: Yes I reviewed the patient's lab results. Lab Results 05/27/25 12:52: WBC 9.4, RBC 5.43, Hgb 16.7, Hct 49.3, MCV 90.8, MCH 30.8, MCHC 33.9, RDW 12.9, Plt Count 309, MPV 9.7, Neut % (Auto) 69.3, Lymph % (Auto) 22.2, [facility] [facility] [place] [facility] % (Auto) 6.4, Eos % (Auto) 1.4, Baso % (Auto) 0.6, Neut # (Auto) 6.5, Lymph # (Auto) 2.1, [facility] # (Auto) 0.6, Eos # (Auto) 0.1, Baso # (Auto) 0.1, PT 11.6, INR 1.05, Sodium 139, Potassium 4.1, Chloride 104, Carbon Dioxide 25, Anion Gap 14.1, BUN 19, Creatinine 1.10, Estimated Creat Clear 111, Estimated GFR 69, Est GFR ( Amer) 84, Glucose 104 H, Calcium 9.9, Magnesium 2.0, Total Bilirubin 0.6, AST 33, ALT 34, Alkaline Phosphatase 68, Troponin I < 0.01, NT-Pro-B Natriuret Pep 24.9, Total Protein 9.0 H, Albumin 5.1 H, Globulin 3.9 H, Albumin/Globulin Ratio 1.3 05/27/25 12:52 05/27/25 12:52 Orders (Tests/Meds): ED MEDICATIONS Discontinued Medications Generic Name Dose Route Start Last Admin Trade Name Skip PRN Reason Stop Dose Admin Iopamidol 80 ml 05/27/25 13:23 05/27/25 13:25 Iopamidol-370 (76%);100ml Bottle IV 05/27/25 13:24 80 ml ONCE ONE Administration Iopamidol 80 ml 05/27/25 13:24 05/27/25 13:25 Iopamidol-370 (76%);100ml Bottle IV 05/27/25 13:25 80 ml ONCE ONE Administration Meclizine HCl 50 mg 05/27/25 12:59 05/27/25 13:05 Meclizine 25mg Tablet PO 05/27/25 13:00 50 mg ONCE ONE Administration Sodium Chloride 50 ml 05/27/25 13:23 05/27/25 13:24 0.9 % Sodium Chloride 50 Ml Vial IV 05/27/25 13:24 50 ml ONCE ONE Administration Sodium Chloride 10 ml 05/27/25 13:23 05/27/25 13:24 Sodium Chloride 0.9% 10ml Syr (Rad Only) IV 05/27/25 13:24 10 ml ONCE ONE Administration Sodium Chloride 50 ml 05/27/25 13:24 05/27/25 13:25 0.9 % Sodium Chloride 50 Ml Vial IV 05/27/25 13:25 50 ml ONCE ONE Administration ORDERS Category Date Time Status CT angio chest PE protocol Stat Cat Scan 05/27/25 13:[address] angio head Stat Cat Scan 05/27/25 12:[address] angio neck Stat Cat Scan 05/27/25 12:[address] head/brain wo con Stat Cat Scan 05/27/25 12:58 Completed XR chest portable Stat Exams 05/27/25 12:57 Completed Complete Blood Count Auto Diff Stat Lab 05/27/25 12:52 Completed Comprehensive Metabolic Panel Stat Lab 05/27/25 12:52 Completed Magnesium Stat Lab 05/27/25 12:52 Completed NT Pro Brain Natriuretic Pep. Stat Lab 05/27/25 12:52 Completed PT INR [Prothrombin Time INR] Stat Lab 05/27/25 12:52 Completed Troponin I Q3H Lab 05/27/25 16:00 Ordered Troponin I Q3H Lab 05/27/25 19:00 Ordered Troponin I Stat Lab 05/27/25 12:52 Completed Medical Decision Narrative: 54-year-old male presents the emergency department with presyncope/lightheadedness, differential diagnose include but not limited to, TIA/CVA, peripheral vertigo, hypovolemia, orthostatic hypotension, posterior hypotension, cardiac arrhythmia, electrolyte disturbance, cardiogenic syncope, vasovagal syncope, situational syncope among others. I discussed the patient's case with the attending physician Dr. Siu Will obtain basic laboratory studies, EKG, orthostatic blood pressures, chest x- ray, magnesium level proBNP coags troponin, CTA chest with and without contrast PE protocol, obtain CT head without contrast, CTA head and neck with and without contrast for further evaluation/characterization will also give 50 mg p.o. meclizine for symptomatology. Orthostatic vital signs are negative CBC is unremarkable CMP is unremarkable Coags within normal limits Troponin and proBNP within normal limits I reviewed the patient's CT head without contrast on the corresponding radiologic report, no acute findings. I reviewed the patient's CTA head and neck with and without contrast along the corresponding radiologic reports, no acute intracranial hemorrhage or large acute cortical infarction no evidence of vascular injury aneurysm or hemodynamically significant stenosis or major vessel occlusion of the intracranial arterial system. No significant stenosis of the cervical carotid arteries. I reviewed the patient's chest x-ray along the corresponding radiologic report no acute cardiopulmonary process. Walk test was unremarkable, performed by nursing staff, no gait disturbance, no presyncopal or syncopal event. I reviewed the patient's CTA chest with without contrast PE protocol, no evidence of pulmonary embolism thoracic dissection or aneurysm. I discussed the results with the patient family bedside patient is resting comfortably in bed, has remained hemodynamically stable throughout his time in the emergency department. Still having some episodes of lightheadedness at rest, but no true vertiginous type symptomatology, no nausea no vomiting no gait disturbance, no upper or lower extremity weakness, felt to be benign presyncopal events, as this has been going on for the last 6 months to a year, no true syncopal event has been recorded. Kiln syncope score is -2 very low risk. Patient was given strict ED return precautions and will follow-up with PCP and chainstitch zipper setter in the upcoming days/weeks. Patient and family are in agreement with the current treatment plan/discharge plan. <Roque Siu MD - Last Filed: 05/27/25 14:37> Vital Signs: 05/27/25 12:55 05/27/25 13:00 05/27/25 13:06 Temperature 98.6 F Temperature Source Oral Pulse Rate Pulse Rate [Orthostatic Lying] 94 H Pulse Rate [Orthostatic Sitting] 95 H Pulse Rate [Orthostatic Standing] 102 H Pulse Rate [Right] 93 H Respiratory Rate 18 15 Blood Pressure 144/94 H Blood Pressure [Orthostatic Lying Left Arm] 135/87 Blood Pressure [Orthostatic Sitting Left Arm] 148/94 H Blood Pressure [Orthostatic Standing Left Arm] 134/97 H Blood Pressure [Right Arm] 152/106 H Blood Pressure Mean [Right Arm] 121 Blood Pressure Source [Right Arm] Automatic Cuff Blood Pressure Position [Right Arm] Sitting 02 Sat by Pulse Oximetry 98 Oxygen Delivery Method Room Air 05/27/25 13:45 05/27/25 14:00 Temperature Temperature Source Pulse Rate 84 79 Pulse Rate [Orthostatic Lying] Pulse Rate [Orthostatic Sitting] Pulse Rate [Orthostatic Standing] Pulse Rate [Right] Respiratory Rate 15 17 Blood Pressure 140/88 141/90 H Blood Pressure [Orthostatic Lying Left Arm] Blood Pressure [Orthostatic Sitting Left Arm] Blood Pressure [Orthostatic Standing Left Arm] Blood Pressure [Right Arm] Blood Pressure Mean [Right Arm] Blood Pressure Source [Right Arm] Blood Pressure Position [Right Arm] 02 Sat by Pulse Oximetry 96 96 Oxygen Delivery Method Room Air Room Air Lab Data Lab Results 05/27/25 12:52: WBC 9.4, RBC 5.43, Hgb 16.7, Hct 49.3, MCV 90.8, MCH 30.8, MCHC 33.9, RDW 12.9, Plt Count 309, MPV 9.7, Neut % (Auto) 69.3, Lymph % (Auto) 22.2, [facility] [place] [facility] % (Auto) 6.4, Eos % (Auto) 1.4, Baso % (Auto) 0.6, Neut # (Auto) 6.5, Lymph # (Auto) 2.1, [facility] # (Auto) 0.6, Eos # (Auto) 0.1, Baso # (Auto) 0.1, PT 11.6, INR 1.05, Sodium 139, Potassium 4.1, Chloride 104, Carbon Dioxide 25, Anion Gap 14.1, BUN 19, Creatinine 1.10, Estimated Creat Clear 111, Estimated GFR 69, Est GFR ( Amer) 84, Glucose 104 H, Calcium 9.9, Magnesium 2.0, Total Bilirubin 0.6, AST 33, ALT 34, Alkaline Phosphatase 68, Troponin I < 0.01, NT-Pro-B Natriuret Pep 24.9, Total Protein 9.0 H, Albumin 5.1 H, Globulin 3.9 H, Albumin/Globulin Ratio 1.3 Orders (Tests/Meds): ED MEDICATIONS Discontinued Medications Generic Name Dose Route Start Last Admin Trade Name Freq PRN Reason Stop Dose Admin Iopamidol 80 ml 05/27/25 13:23 05/27/25 13:25 Iopamidol-370 (76%);100ml Bottle IV 05/27/25 13:24 80 ml ONCE ONE Administration Iopamidol 80 ml 05/27/25 13:24 05/27/25 13:25 Iopamidol-370 (76%);100ml Bottle IV 05/27/25 13:25 80 ml ONCE ONE Administration Meclizine HCl 50 mg 05/27/25 12:59 05/27/25 13:05 Meclizine 25mg Tablet PO 05/27/25 13:00 50 mg ONCE ONE Administration Sodium Chloride 50 ml 05/27/25 13:23 05/27/25 13:24 0.9 % Sodium Chloride 50 Ml Vial IV 05/27/25 13:24 50 ml ONCE ONE Administration Sodium Chloride 10 ml 05/27/25 13:23 05/27/25 13:24 Sodium Chloride 0.9% 10ml Syr (Rad Only) IV 05/27/25 13:24 10 ml ONCE ONE Administration Sodium Chloride 50 ml 05/27/25 13:24 05/27/25 13:25 0.9 % Sodium Chloride 50 Ml Vial IV 05/27/25 13:25 50 ml ONCE ONE Administration ORDERS Category Date Time Status CT angio chest PE protocol Stat Cat Scan 05/27/25 13:[address] angio head Stat Cat Scan 05/27/25 12:[address] angio neck Stat Cat Scan 05/27/25 12:[address] head/brain wo con Stat Cat Scan 05/27/25 12:58 Completed XR chest portable Stat Exams 05/27/25 12:57 Completed Complete Blood Count Auto Diff Stat Lab 05/27/25 12:52 Completed Comprehensive Metabolic Panel Stat Lab 05/27/25 12:52 Completed Magnesium Stat Lab 05/27/25 12:52 Completed NT Pro Brain Natriuretic Pep. Stat Lab 05/27/25 12:52 Completed PT INR [Prothrombin Time INR] Stat Lab 05/27/25 12:52 Completed Troponin I Q3H Lab 05/27/25 16:00 Ordered Troponin I Q3H Lab 05/27/25 19:00 Ordered Troponin I Stat Lab 05/27/25 12:52 Completed ECG Data Tracing #1: I reviewed this ECG and interpreted as documented below: Normal sinus rhythm. No ST elevation or depression. Nonspecific T wave inversions in aVF and lead III Critical Care <LAKSHMI Bernal - Last Filed: 05/27/25 14:39> Critical Care Time Critical Care Time: No
--- NOTE | 2025-05-27 12:47 | ECG_ITS ---
APPROVED REPORT Exam: Resting ECG HR:92 bpm ECG Measurements Heart Rate 92 AXES SC 169 P 58 QRSd 98 QRS 52 QT 336 T -14 QTc 386 Conclusion SINUS RHYTHM NONSPECIFIC T-WAVE ABNORMALITY ABNORMAL ECG UNCONFIRMED REPORT Normal sinus rhythm. No ST elevation. T wave inversions in III and aVG. Electronically signed by : JUANA VU, 05/28/2025 07:08:38
--- NOTE | 2025-05-27 12:57 | XR_ITS ---
FINAL REPORT TECHNIQUE: Single view chest CLINICAL HISTORY: Lightheadedness FINDINGS: A single view of the chest was obtained. The heart and mediastinum are within normal limits. The lungs are clear. There is no pneumothorax. IMPRESSION: No acute cardiopulmonary process. Reviewed, Interpreted and Dictated by Jonelle Sutherland MD Transcribed by Rashmi Cooper Authenticated and [facility]
--- NOTE | 2025-05-27 12:58 | CT_ITS ---
FINAL REPORT CLINICAL HISTORY: Lightheadedness/near syncope FINDINGS: CT NECK ANGIO, WITHOUT AND WITH CONTRAST TECHNIQUE: Thin section axial CT with contrast with multiplanar 3D MIP reconstruction. This study was performed with techniques to keep radiation doses as low as reasonably achievable, (ALARA). Individualized dose reduction techniques using automated exposure control or adjustment of mA and/or kV according to the patient''s size were employed. NASCET criteria and technique was utilized during interpretation. FINDINGS: Aortic arch: Arch shows no significant narrowing. Great vessel origins are widely patent. Right carotid: No significant stenosis is seen of the cervical common or internal carotid artery. Left carotid: No significant stenosis is seen of the cervical common or internal carotid artery. Vertebrals: Left vertebral artery is dominant. No significant stenosis is present. IMPRESSION: No significant stenosis of the cervical carotid arteries Reviewed, Interpreted and Dictated by Jonelle Sutherland MD Transcribed by Rashmi Cooper Authenticated and . [facility]
--- NOTE | 2025-05-27 12:58 | CT_ITS ---
FINAL REPORT TECHNIQUE: Noncontrast exam This study was performed with techniques to keep radiation doses as low as reasonably achievable, (ALARA). Individualized dose reduction techniques using automated exposure control or adjustment of mA and/or kV according to the patient''s size were employed. CLINICAL HISTORY: Lightheadedness/near syncope FINDINGS: No abnormal density is seen. Ventricles are normal. There is no hemorrhage. No mass effect is seen. Bone windows show no evidence of fracture. IMPRESSION: No acute findings Reviewed, Interpreted and Dictated by Jonelle Sutherland MD Transcribed by Rashmi Cooper Authenticated and . [facility]
--- NOTE | 2025-05-27 12:58 | CT_ITS ---
FINAL REPORT TECHNIQUE: Multiple axial CT angiography images were performed from the foramen magnum to the vertex before and during IV contrast administration. This study was performed with techniques to keep radiation doses as low as reasonably achievable (ALARA). Individualized dose reduction techniques using automated exposure control or adjustment of mA and/or kV according to the patient's size were employed. CLINICAL HISTORY: Lightheadedness/near syncope FINDINGS: CTA HEAD: The major intracranial arterial system is patent without hemodynamically significant stenosis or major vessel occlusion.No aneurysm is identified. IMPRESSION: No acute intracranial hemorrhage or large acute cortical infarct. No evidence of vascular injury, aneurysm, hemodynamically significant stenosis or major vessel occlusion of the intracranial arterial system. Reviewed, Interpreted and Dictated by Jonelle Sutherland MD Transcribed by Rashmi Cooper Authenticated and . [facility]
[2025-05-27 13:00] LABS: Hematocrit 49.3 % (42.0-52.0); Hemoglobin 16.7 g/dL (14.1-18.0); Immature Granulocytes % 0.1 %; Mean Corpuscular HGB Conc 33.9 g/dL (31.8-35.4); Mean Corpuscular Hemoglobin 30.8 pg (27.0-31.2); Mean Corpuscular Volume 90.8 fl (80-94); Nucleated Red Blood Cells % 0 %; Platelet Count 309 K/mm3 (142-424); Red Blood Count 5.43 M/mm3 (4.60-6.20); Red Cell Distribution Width-SD 43.1 fL; White Blood Count 9.4 K/mm3 (4.8-10.8)
--- NOTE | 2025-05-27 13:02 | CT_ITS ---
FINAL REPORT TECHNIQUE: Thin section axial CT with contrast with multiplanar reconstruction This study was performed with techniques to keep radiation doses as low as reasonably achievable, (ALARA). Individualized dose reduction techniques using automated exposure control or adjustment of mA and/or kV according to the patient's size were employed. CLINICAL HISTORY: Lightheadedness/dizziness COMPARISON: 06/07/2024 (images only) FINDINGS: CTA CHEST: Pulmonary vessels enhance in normal fashion without evidence of embolism. Thoracic aorta shows no dissection or aneurysm. No pulmonary mass or infiltrate is present. There is no significant pleural effusion. There is no significant pericardial effusion. No mediastinal or hilar adenopathy is present. IMPRESSION: 1. No evidence of pulmonary embolism, thoracic dissection or aneurysm. Reviewed, Interpreted and Dictated by Jonelle Sutherland MD Transcribed by Nuvia Guzmán Authenticated and . [facility]
[2025-05-27] MEDS: MECLIZINE 25MG TABLET 50 MG PO (13:05)
[2025-05-27 13:11] LABS: Alanine Aminotransferase 34 U/L (12-78); Albumin Level 5.1 g/dl (3.5-5.0); Albumin/Globulin Ratio 1.3 (1.1-1.8); Alkaline Phosphatase 68 U/L (38-126); Anion Gap 14.1 mEq/L (5-15); Aspartate Amino Transferase 33 U/L (17-59); Bilirubin,Total 0.6 mg/dl (0.2-1.3); Blood Urea Nitrogen 19 mg/dl (9-20); Calcium 9.9 mg/dl (8.4-10.2); Carbon Dioxide 25 mmol/L (22.0-30.0); Chloride 104 mmol/L (98-107); Creatinine Clearance Estimated 111 mL/min (50-200); Creatinine,Serum 1.10 mg/dl (0.66-1.25); Estimated Glomerular Filt Rate 69 ml/min (>60); GFR (African American) 84 ML/MIN (>60); Globulin 3.9 g/dL (1.3-3.2); Glucose 104 mg/dl (74-100); Magnesium 2.0 mg/dl (1.6-2.3); Potassium 4.1 mmoL/L (3.5-5.1); Sodium 139 mmol/L (136-145); Total Protein,Serum 9.0 g/dl (6.3-8.2)
[2025-05-27 13:15] LABS: INR 1.05 (0.9-1.1); Prothrombin Time 11.6 seconds (10.1-12.5)
[2025-05-27 13:22] LABS: NT Pro Brain Natriuretic Pep. 24.9 pg/mL (0-125)
[2025-05-27 13:23] LABS: Troponin I < 0.01 ng/ml (0.00-0.034)
[2025-05-27] MEDS: SODIUM CHLORIDE 0.9% 10ML SYR (RAD ONLY) 10 ML IV (13:24)
[2025-05-27] MEDS: 0.9 % SODIUM CHLORIDE 50 ML VIAL IV ×2 (13:24→13:25)
[2025-05-27] MEDS: IOPAMIDOL-370 (76%);100ML BOTTLE 80 ML IV ×2 (13:25)
--- NOTE | 2025-05-27 13:55 | PC.NURSE ---
Ambulated patient to the restroom, stable gait noted while walking. Patient reports no change in dizziness after meclizine administration. LAKSHMI Reynolds notified.
== END 2025-05-27 14:52 | disposition home or self-care (01) ==
PROVIDERS: Physician Assistant; Emergency Provider Student in an Organized Health Care Education/Training Program; PCP Family Medicine
DX: R55 Syncope and collapse (principal); I42.2 Other hypertrophic cardiomyopathy
CPT/HCPCS: 70450; 70496; 70498; 71045; 71275; 80053; 83735; 83880; 84484; 85025; 85610; 93005; 99285; Q9967